=== PATIENT | female | born 1930 | race Caucasian/White ===

== ENCOUNTER 2018-07-26 06:52 | Inpatient (IN) ==
--- NOTE | 2018-07-26 07:25 | PROVIDER DOCUMENTATION ---
HPI-General Adult - General Stated Complaint: fall Time Seen by Provider: 07/26/18 07:11 Source: patient, old records Allergies/Adverse Reactions: Patient Allergies Allergy/AdvReac Type Severity Reaction Status Date / Time No Known Allergies Allergy Verified 07/26/18 07:43 Home Medications: Home Medication List Medication Instructions Recorded Confirmed Last Taken Type Amiodarone [Cordarone] 200 mg PO BID 03/18/18 03/18/18 03/26/18 02:30 History Amlodipine [Norvasc] 10 mg PO DAILY 03/18/18 03/18/18 03/26/18 02:30 History Aspirin 81 mg PO DAILY 03/18/18 03/18/18 03/22/18 History Calcium Carbonate/Vitamin D3 1 each PO DAILY 03/18/18 03/18/18 03/25/18 09:00 History [Calcium 600 + Vit D Tablet] Cyanocobalamin (Vitamin B-12) 1,000 mcg PO DAILY 03/18/18 03/18/18 03/25/18 09:00 History [Vitamin B-12] Famotidine 20 mg PO DAILY 03/18/18 03/18/18 03/26/18 02:30 History Ferrous Gluconate [Fergon] 240 mg PO DAILY 03/18/18 03/18/18 03/26/18 02:30 History Metoprolol [Lopressor] 25 mg PO DAILY 03/18/18 03/18/18 03/26/18 02:30 History Naproxen Sodium [Aleve] 220 mg PO BID 03/18/18 03/26/18 03/25/18 09:00 History Rivaroxaban [Xarelto] 15 mg PO DAILY 03/18/18 03/26/18 03/22/18 History Vit C/E/Zn/Coppr/Lutein/Zeaxan 1 each PO DAILY 03/18/18 03/18/18 03/25/18 09:00 History [Preservision Areds 2 Softgel] Hydrocodone/APAP 5 mg/325 mg 1 ea PO Q6H PRN PRN #10 tab 03/26/18 Unknown Rx [[place]-5] - History of Present Illness -Gen Adult Nature of Presenting Problems: wheelchair bound pt (reports fx hip and back surgery in 2018, non-amb. since) w/ hx of revasc LLE per Dr. Berumen Jared of this year (ulcer), reports she had a stool in her WChair and was attempting to clean it/herself up when she fell ooWC. does not cc: specific/focal pain/injury from this fall. she says she had a ~ large, soft but formed stool. she had a CXR ~ 3 days ago described w/o c'megaly, but bibasilar atelectasis and pl effusions. her face appears swollen as if anasarca, and she says face, hands, and legs/feet have sTS over past 3 weeks. she does not volunteer a specific cc: of SOB. Review of Systems - Adult - REVIEW OF SYSTEMS - ADULT Constitutional: reports: no symptoms reported Eyes: reports: no symptoms reported Ears, Nose, Mouth & Throat: reports: no symptoms reported Cardiovascular: reports: no symptoms reported Respiratory: reports: no symptoms reported Gastrointestinal: reports: see HPI Genitourinary: reports: no symptoms reported Musculoskeletal: reports: see HPI Integumentary: reports: see HPI Neurological: reports: no symptoms reported Psychiatric: reports: no symptoms reported Endocrine: reports: no symptoms reported Hematologic/Lymphatic: reports: no symptoms reported Allergic/Immunologic: reports: no symptoms reported All Other Systems: Reviewed and Negative Past History - Adult - PAST MEDICAL HISTORY-ADULT Review of Records: reports: Old Records Reviewed Physical Exam-General - PHYSICAL EXAM-ADULT Initial Vital Signs Reviewed: Yes - CONSTITUTIONAL General Appearance: alert, mild distress, other (tachypneic) - EYES Eyes: other (non-inflammatory periorb and facial edema bilat) - HEAD, EARS, NOSE, MOUTH & THROAT HENMT: normocephalic/atraumatic, dental decay - NECK Neck: non-tender, supple - RESPIRATORY Respiratory: decreased breath sounds - CARDIOVASCULAR Cardiovascular: regular rate, rhythm. negative: no JVD (pt has NVD @ 30deg HOB elev, but fill from above) - GASTROINTESTINAL (ABDOMEN) Abdominal Exam: normal bowel sounds, no pulsatile mass, distended. negative: abnormal bowel sounds, guarding, rigid, rebound, tenderness - MUSCULOSKELETAL Back Exam: decreased range of motion Extremity: pedal edema (bilat 3-4+ edema, kendell insuff, slight cellulitic erythema L ant leg, but not warm to touch. no open wounds. debris on plantar feet esther R), swelling - SKIN Integumentary: swelling. negative: ecchymosis, embolic lesions, jaundice, mottled, petechiae, purpura, rash - NEUROLOGIC Neurologic: mixer runner II-XII nml as tested, grossly normal - PSYCHIATRIC Psych/Mental Status: normal mood/affect, normal thought content Progress - PLAN OF CARE/RESULTS Result Diagrams: 07/26/18 07:52 07/26/18 07:52 - REASSESSMENT Reassessment #2 Time Reassessed: 10:45 Status: improving (pt found to be profoundly hypothermic on rectal therm. pt was empirically placed on warming blanket and given IV thyroxine and hcortisone. labs appear to confirm hypothyroidism, also suggx rhabdomyolysis. brain imaging NAD. CXR reviewed. will page Hospitalist for adm.) Departure - Departure Date of Disposition Decision: 07/26/18 Time of Disposition Decision: 10:50 DIAGNOSIS: Adult myxedema, Hypothermia, Rhabdomyolysis Disposition: ADMITTED INPATIENT 09 Certified Medical Emergency: Emergent Condition: Critical Referrals and Follow-Ups: Rhys Reyes MD [Primary Care Provider] - - Critical Care Note This patient required my direct & personal management of CC.: Yes Total Time (mins): 50 Critical Care Statement: This patient required my direct personal management to treat or rule out processes, the absence of which, could potentiallly result in sudden, clinically significant life or limb threatening deterioration. Attestation - Physician/ ANGELITO Attestation The physician spent face to face time with patient:: Yes Advanced Practice Provider documentation review:: Supervising physician onsite and consulted in the evaluation and care of this patient. The physician did have a face to face encounter with the patient.
[2018-07-26 08:06] LABS: BASO# 0.01 X1000 (0.0-0.2); BASO% 0.1 % (0.0-0.8); EOS# 0.02 X1000 (0.0-0.7); EOS% 0.2 % (0.0-10.0); HEMATOCRIT 31.1 % (37.0-47.0); HEMOGLOBIN 10.6 g/dL (12.0-16.0); IMM GRAN# 0.08 X1000 (0.0-0.04); IMM GRAN% 0.8 % (0.0-0.5); LYMPH# 0.69 X1000 (1.2-3.4); MCH 34.6 PG (27-31); MCHC 34.1 g/dL (33-37); MCV 101.6 FL (81-99); MONO# 0.75 X1000 (0.11-0.59); MONO% 7.6 % (1.7-9.3); MPV 9.1 FL (7.4-10.4); NEUT# 8.33 X1000 (1.4-6.5); NEUT% 84.3 % (42.2-75.2); PLT 287 X1000 (130-400); RBC 3.06 XMIL (4.2-5.4); WBC 9.88 X1000 (4.8-10.8)
[2018-07-26] MEDS ORDERED: SYNTHROID IV ONE ×3 (08:08→11:11)
[2018-07-26] MEDS ORDERED: SODIUM CHLORIDE 0.9% INJ ONE ×3 (08:08→11:11)
[2018-07-26] MEDS ORDERED: SOLU-CORTEF IV ONE (08:09)
[2018-07-26 08:10] LABS: URINE SOURCE CATH
[2018-07-26 08:15] LABS: BILIRUBIN URINE NEGATIVE (NEGATIVE); BLOOD URINE NEGATIVE (NEGATIVE); COLOR YELLOW; GLUCOSE URINE NEGATIVE (NEGATIVE); KETONE URINE NEGATIVE (NEGATIVE); LEUKOCYTES URINE NEGATIVE (NEGATIVE); NITRITE URINE NEGATIVE (NEGATIVE); PROTEIN URINE TRACE mg/dL (NEGATIVE); SP GRAVITY URINE 1.011; TURBIDITY URINE CLEAR (CLEAR); UR EPITHELIAL CELLS <10 /HPF (<10); URINE BACTERIA NEGATIVE /HPF; URINE RBC <10 /HPF (<10); URINE WBC <10 /HPF (<10); UROBILINOGEN URINE NORMAL (NORMAL)
[2018-07-26 08:27] LABS: CALCIUM 8.4 mg/dL (8.8-10.2); CREATININE 1.1 mg/dL (0.5-0.9); MAGNESIUM 2.6 mg/dL (1.5-2.7); POTASSIUM 5.4 mmol/L (3.5-5.1); TOTAL BILIRUBIN 0.35 mg/dL (0.20-1.00)
[2018-07-26 08:40] LABS: PTT 34.1 Seconds (22.3-41.8)
[2018-07-26 08:52] LABS: CK INDEX 4.1 (0.0-2.5); CK-MB 56.37 ng/mL (0.0-5.0); T4 1.76 ug/dL (4.60-12.00)
[2018-07-26 09:07] LABS: TSH 79.86 uIUmL (0.27-4.20)
--- NOTE | 2018-07-26 09:30 | Diag Imaging Result Doc PS360 ---
CT HEAD W/O CONTRAST - 07/26/2018 INDICATION: closed head injury (fall) on Xarelto COMPARISON: None FINDINGS: There is a small focal area of encephalomalacia at the left parietal lobe most likely an old stroke. No intracranial mass or hemorrhage. There is mild periventricular white matter chronic microvascular disease. There is a small left frontal scalp contusion. There is also soft tissue swelling over the left temporal region. No large soft tissue hematoma. There is some trace fluid in the sphenoid sinuses. Other sinuses are clear. IMPRESSION: Left-sided scalp superficial soft tissue contusions. No intracranial injury. This exam was performed using automated exposure control, adjustment of mA or kV according to patient size, and/or use of iterative reconstruction technique Electronically signed by Alberto Kaufman 07/26/2018 9:28 AM
--- NOTE | 2018-07-26 09:36 | Diag Imaging Result Doc PS360 ---
CT ABD/PELVIS W/IV CONT ONLY - 07/26/2018 INDICATION: abd distension, anasarca COMPARISON: 03/05/2018 FINDINGS: There are small bilateral pleural effusions. There is significant dependent atelectasis or consolidation of both lower lobes. There is diffuse body wall edema worst on the left side. There is heavy vascular disease of the aorta. Heart size is normal with no pericardial effusion. There are pacemaker leads in the heart. There is a moderately large hiatal hernia. There is severe constipation throughout the colon. No bowel obstruction or inflammation. There is a septated cystic area at the right adnexa measuring 5.4 x 4.2 cm. This is stable from the CT of 03/05/2018. There is recent appearing comminuted fracture of the right symphysis pubis was not present previously. There are clearly sclerotic densities throughout both sacral wings compatible with sacral insufficiency fractures as well. Stable laminectomy and left-sided posterior fusion changes at the lower lumbar spine. No definite compression fractures in the spine. IMPRESSION: Numerous nonspecific issues. This exam was performed using automated exposure control, adjustment of mA or kV according to patient size, and/or use of iterative reconstruction technique Electronically signed by Alberto Kaufman 07/26/2018 9:34 AM
[2018-07-26] MEDS ORDERED: CYTOMEL PO ONE (11:12)
[2018-07-26] MEDS ORDERED: SODIUM CHLORIDE 0.9% INJ PRN (11:12)
[2018-07-26 12:45] LABS: UR CREAT RANDOM 48.5 mg/dL (11-20)
[2018-07-26] MEDS: ROCEPHIN 1 GM in NS 50 ML IV SCH (13:21)
[2018-07-26 13:44] LABS: CK INDEX 3.8 (0.0-2.5); CK-MB 55.73 ng/mL (0.0-5.0); FERRITIN 446 ng/mL (13-150)
[2018-07-26] MEDS ORDERED: NS 1,000 ML IV ONE (14:47)
[2018-07-26] MEDS: SOLU-CORTEF IV SCH (16:10)
[2018-07-26] MEDS: NS 1,000 ML IV SCH (16:10)
[2018-07-26] MEDS: ZITHROMAX 500 MG/NS 500 MG/250 ML IVPB IV SCH (16:10)
[2018-07-26 20:05] LABS: CK INDEX 3.3 (0.0-2.5); CK-MB 35.65 ng/mL (0.0-5.0)
[2018-07-26] MEDS: CORDARONE PO SCH (20:42)
[2018-07-26] MEDS: MIRALAX PO SCH (20:42)
--- NOTE | 2018-07-26 21:20 | HISTORY AND PHYSICAL ---
CHIEF COMPLAINT: Lethargy, generalized body swelling and mechanical fall. HISTORY OF PRESENT ILLNESS: Ms. Becker is an 88-year-old lady with past medical history of atrial fibrillation and rapid ventricular rate status post pacemaker on Xarelto, chronic GERD, mouth cancer requiring surgery in 2011 and 2013, essential hypertension, who came in after she was noticed by her lying down on the floor fallen from her motorized wheelchair, which could have happened for up to 6 hours before presentation. At baseline patient ambulates using a motorized wheelchair and she has been in her usual state of health until about a week ago when she started feeling short of breath. She had seen her it technical support specialist 2 days prior to presentation and chest x-ray and echocardiogram were performed. Chest x-ray had suggested bilateral pleural effusions. An echocardiogram had normal ejection fraction with some pericardial effusion. Some adjustments were made into her cardiovascular regimen; however, patient had started becoming increasingly lethargic overnight. The patient wanted to go to the bathroom using a motorized wheelchair and she had fallen down. She was not sure how many hours she was fallen down; however, her noticed she was on the floor in the morning time at about 6:30 a.m. and called EMS. EMS brought the patient to the emergency room. In the emergency room, the patient was noted to be severely hypothermic with temperature as low as 91 degree Fahrenheit. Her TSH was significantly elevated. Intravenous levothyroxine and hydrocortisone were given and hospitalist team was consulted for further management. At the time of my evaluation, patient is drowsy but arousable and she is able to contribute to the history meaningfully. She denies any known history of thyroid disease. She currently denies any chest pain. She is complaining of mild shortness of breath. She denies any nausea, vomiting, abdominal pain or diarrhea. The patient's family including and daughter are at bedside. I am told that the patient had recently developed left lower extremity cellulitis for which she was given antibiotics about 2 weeks ago, the details of which are unclear. REVIEW OF SYSTEMS: Negative for blurriness of vision, negative for seizure, positive for mild headache, negative for chest pain, negative for nausea, vomiting, negative for abdominal pain, positive for shortness of breath, positive for bilateral lower extremity swelling. PAST MEDICAL AND SURGICAL HISTORY: 1. Atrial fibrillation with rapid ventricular rate, status post pacemaker. 2. On chronic anticoagulation with Xarelto. 3. 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 4. Chronic GERD. 5. Pacemaker implantation. 6. Hip surgery in 2018. 7. Peripheral arterial disease and left lower extremity percutaneous left posterior tibial artery balloon angioplasty in February 2018. HOME MEDICATIONS: The medications are not properly reconciled yet. However, she is taking vitamin E 1 tablet daily, metoprolol 25 mg daily, ferrous gluconate 240 mg daily, amlodipine 10 mg daily, amiodarone 200 mg b.i.d., rivaroxaban 15 mg daily, furosemide 40 mg daily, potassium chloride 10 mEq daily, spironolactone 12.5 mg daily. PERSONAL HISTORY: Patient is never smoker. Denies active alcohol drinker, recreational drug. FAMILY HISTORY: Not significant currently. VITAL SIGNS: Currently vitals suggest temperature of 97.3, pulse of 60, respiratory rate 13, blood pressure 100/50, saturating 98% on 4 L nasal cannula. PHYSICAL EXAMINATION: GENERAL: She does have generalized anasarca with puffy face, puffy bilateral upper and lower extremity. HEENT: She also has periorbital edema. Oral cavity is moist. LUNGS: Air entry decreased bilateral inframammary region. No wheeze or rhonchi. S1, S2 normal, bradycardic. No murmur, rub or gallop. The thyroid is not palpable. ABDOMEN: Soft, nontender. She has bilateral lower extremity edema extending up to thigh level. She also has pitting edema and generalized erythema affecting left lower extremity. Her pulses are difficult to palpate. SKIN: Appears warm to touch. Reflexes are brisk both upper and lower extremities. NEUROLOGIC: She is drowsy but arousable and then contributes meaningful history. Her voice appears hoarse. LABORATORY: Suggestive of no leukocytosis, normocytic anemia, normal platelet count, normal coagulation, hyponatremia, hyperkalemia, hypochloremia, elevated BUN and creatinine with kidney dysfunction. Troponins so far showing a flat trend. She does have elevated vitamin B12 level. TSH was elevated to 80, total T4 is low to 1.7, though free T4 was within acceptable range. It looks like was collected after intravenous levothyroxine. Microbiology: Blood cultures are in lab. IMAGING: Abdomen and pelvis CT performed for abdominal distention, anasarca. Had bilateral pleural effusion. There is dependent atelectasis or consolidation. There was diffuse body wall edema, vascular calcification of aorta, moderate large hiatal hernia, severe constipation. There were also comminuted fracture of right symphysis pubis and densities throughout both sacral wings compatible with sacral insufficiency fractures. EKG has not been scanned in the system. ASSESSMENT AND PLAN: 1. Suspected sepsis from bilateral lower lobe pneumonia and possibly left lower extremity cellulitis. 2. Myxedema. 3. Suspected acute kidney injury with hyponatremia, hyperkalemia. 4. Lethargy and mechanical fall with likely in the setting of severe hypothyroidism and myxedema. 5. History of atrial fibrillation with rapid ventricular rate, status post pacemaker and Xarelto. 6. Chronic GERD. 7. Peripheral arterial disease with left lower extremity posterior tibial artery angioplasty. PLAN: 1. Start patient on intravenous fluid resuscitation, intravenous levothyroxine and p.o. T3 hormone. Also, keep patient on intravenous hydrocortisone to prevent secondary adrenal insufficiency, though her electrolytes could suggest adrenal insufficiency. Her cortisol level is normal at the moment. Continue to monitor the patient in ICU. 2. Start patient on intravenous ceftriaxone. Follow up with urine Legionella and streptococcal antigen with blood culture results as well. 3. I will resume patient's home amiodarone for atrial fibrillation; ferrous gluconate for chronic anemia. I am holding beta herminia considering it may prevent T4-T3 conversion. I am holding Xarelto considering her recent fall. TIME SPENT: More than 30 minutes of critical care time was spent in taking care of this patient. CODE STATUS: The patient's code status is do not resuscitate. PLAN OF CARE: Plan of care discussed with the patient, her and daughter at bedside. All of their questions have been answered. cc: Dharmesh Jane MD [facility]
[2018-07-27] MEDS: SOLU-CORTEF IV SCH ×4 (00:23→23:53)
[2018-07-27] MEDS: ROCEPHIN 1 GM in NS 50 ML IV SCH ×3 (00:27→23:53)
--- NOTE | 2018-07-27 05:00 | HISTORY AND PHYSICAL ---
CHIEF COMPLAINT: Lethargy and mechanical fall. HISTORY OF PRESENT ILLNESS: Ms. Becker is an 88-year-old, lady with a past medical history of atrial fibrillation with rapid ventricular rate, status post pacemaker and on Xarelto, hip surgery in 2018, who comes in after a mechanical fall. The patient was in her usual state of health until yesterday. She is bedbound and uses a motorized wheelchair. Apparently, the patient went to have a bowel movement overnight. She was in her motorized chair but she did not notify her and she fell down while going to the bathroom. The , when he woke up in the morning time, found the patient was on the floor. However, she was not able to talk with her so the actual down time was not known. The EMS was called and EMS brought the patient in the emergency room. In the emergency room, the patient was found to have a scalp hematoma as well as bilateral lower extremity edema and bilateral upper extremity edema and facial swelling. The TSH level was very elevated. She was given intravenous levothyroxine and hydrocortisone. The hospitalist team was notified of further management. Apparently, the patient had seen a merchandising professor for increasing shortness of breath about 2 or 3 days ago and an x-ray was performed which had bilateral pleural effusion. According to the patient's at bedside, some medication changes were made. She was also diagnosed to have left lower extremity cellulitis and was started on some antibiotic about couple of weeks ago, the details of which are unclear. At the time of my evaluation, the patient is sleepy but easily arousable and she is able to provide a meaningful history. She denies being diagnosed with thyroid disorder in the past. She denies any nausea, vomiting, chest pain, or shortness of breath. She denies any abdominal pain or diarrhea. REVIEW OF SYSTEMS: Positive for headache. Negative for blurring of vision. Negative for swallowing disturbance. Positive for hoarseness of voice. Negative for chest pain or shortness of breath. Negative for nausea, vomiting, or abdominal pain. PAST MEDICAL HISTORY: 1. 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 2. Essential hypertension. 3. Atrial fibrillation with rapid ventricular rate, status post pacemaker and on Xarelto. 4. Mouth cancer in 2011 and 2012 requiring surgery, probably involving her gums. 5. Chronic gastroesophageal reflux disease. PAST SURGICAL HISTORY: 1. Pacemaker placement. 2. Hip surgery in 2018. 3. Peripheral arterial disease and percutaneous left posterior tibial artery balloon angioplasty for left posterior tibial artery occlusion with the heel ulcer and severe left popliteal stenosis in February. HOME MEDICATIONS: Include metoprolol 25 mg daily, ferrous gluconate 240 mg daily, amlodipine 10 mg daily, amiodarone 200 mg b.i.d., Xarelto 15 mg daily, furosemide 40 mg daily, potassium chloride 10 mEq daily, spironolactone 12.5 mg daily. PERSONAL HISTORY: Never smoker. Never a drinker. Never a recreational drug user. VITALS: Temperature of 97.3 degrees, pulse of 61, respiratory rate 22, blood pressure 110/70, saturating 99% on 2 L nasal cannula. PHYSICAL EXAMINATION: GENERAL: Does not appear in any acute distress. She is sleepy. HEENT: She has greene facies with periorbital edema. She has hoarseness of voice. Oral cavity is moist. LUNGS: Air entry bilaterally equal. No wheeze, rhonchi, crackles. CARDIOVASCULAR: S1, S2 normal. No murmur, rub, or gallop. ABDOMEN: Soft, nontender. Tympanic to percussion. EXTREMITIES: She has bilateral lower extremity edema and diffuse erythema affecting the left lower extremity but good dorsalis pedis pulses and good perfusion. NEUROLOGIC: She is drowsy but arousable. Answers all questions appropriately and remembers all of her medical history. LABS: Suggestive of macrocytic anemia, normal platelet count, normal coagulation, hyponatremia, hypochloremia, hyperkalemia, what appears to be chronic kidney disease stage IIIA, elevated troponins, elevated proBNP. TSH level is 80 Total T4 is 1.7. However, Free T4 level is pending. MICROBIOLOGY: Blood culture in lab. IMAGING: Head CT did not have an acute intracranial pathology. She did have left-sided scalp superficial soft tissue contusion. Abdomen and pelvis CT for abdominal distention and anasarca had bilateral pleural effusions with atelectasis or consolidation, diffuse body wall edema, vascular disease of aorta, severe constipation, recent comminuted fracture of the right symphysis pubis. ASSESSMENT AND PLAN: 1. Suspected sepsis due to bilateral lower lobe pneumonia. 2. 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 3. Mechanical fall because of physical deconditioning and myxedema coma. 4. Hyponatremia, hypochloremia, hyperkalemia in the setting of chronic kidney disease stage 3. 5. History of atrial fibrillation with rapid ventricular rate, status post pacemaker. 6. History of peripheral arterial disease. 7. Essential hypertension. PLAN: 1. The patient's significant hypothermia, hyponatremia, hyperkalemia, and elevated TSH are likely in the setting of myxedema with generalized body wall edema and anasarca, likely in the setting of myxedema coma because of undiagnosed hypothyroidism. She does not have adrenal insufficiency at the moment. I will start the patient on intravenous levothyroxine, p.o. T3 and intravenous hydrocortisone. In the future, I will repeat TSH. I will follow up with free T4 and T3 levels as well. I will also get anti-TPO antibodies and we will consider getting a thyroid ultrasound. 2. Suspected sepsis. The source could be bilateral lower lobe pneumonia versus left lower extremity cellulitis. The possibility of cellulitis is less. I will follow up with urine antigen, blood culture, and treat patient with intravenous ceftriaxone and azithromycin. 3. Multiple electrolyte abnormalities and kidney dysfunction, likely in the setting of chronic kidney disease stage 3. I will start patient on intravenous fluid resuscitation and follow up with serial electrolytes. 4. Atrial fibrillation with rapid ventricular rate history as well as peripheral artery disease. I will resume the patient's home medications of amiodarone. Later on in the future, I will start her antihypertensive medication including metoprolol, amlodipine, and Xarelto once her scalp hematoma is stable. DISPOSITION: The patient's condition is critical. More than 30 minutes of critical care time were spent in taking care of this patient. Plan of care discussed with patient's and daughter at bedside. All of their questions have been satisfactorily answered. The patient's code status is Do Not Resuscitate as verbalized by patient herself. cc: Dharmesh Jane MD [facility]
[2018-07-27 05:38] LABS: HEMATOCRIT 26.6 % (37.0-47.0); HEMOGLOBIN 8.9 g/dL (12.0-16.0); IMM GRAN# 0.06 X1000 (0.0-0.04); IMM GRAN% 0.8 % (0.0-0.5); LYMPH# 0.56 X1000 (1.2-3.4); LYMPH% 7.5 % (20.5-51.1); MCH 34.6 PG (27-31); MCHC 33.5 g/dL (33-37); MCV 103.5 FL (81-99); MONO# 0.28 X1000 (0.11-0.59); MONO% 3.8 % (1.7-9.3); MPV 8.9 FL (7.4-10.4); NEUT# 6.54 X1000 (1.4-6.5); NEUT% 87.9 % (42.2-75.2); PLT 275 X1000 (130-400); RBC 2.57 XMIL (4.2-5.4); RDW 15.7 % (11.5-14.5); WBC 7.44 X1000 (4.8-10.8)
[2018-07-27 06:05] LABS: CALCIUM 8.1 mg/dL (8.8-10.2); MAGNESIUM 2.5 mg/dL (1.5-2.7); POTASSIUM 4.6 mmol/L (3.5-5.1)
[2018-07-27] MEDS: SYNTHROID IV SCH (06:23)
[2018-07-27] MEDS: NS 1,000 ML IV SCH (06:23)
--- NOTE | 2018-07-27 06:34 | Diag Imaging Result Doc PS360 ---
CHEST-1 VIEW - 07/27/2018 INDICATION: possible pneumonia COMPARISON: 07/23/2018 FINDINGS: Stable left sided pacemaker. Stable cardiomegaly. Stable bibasilar pleural effusions that are moderately large. Pulmonary vascularity remains distended. No infiltrates or definite edema. IMPRESSION: No change from prior. Electronically signed by Alberto Kaufman 07/27/2018 6:31 AM
[2018-07-27] MEDS ORDERED: SYNTHROID IV SCH (07:00)
--- NOTE | 2018-07-27 07:21 | EKG Report ---
Test Performed on : 07/26/2018 07:42:15 AM Test Reason : dyspnea Blood Pressure : / mmHG Vent. Rate : 060 BPM Atrial Rate : 060 BPM P-R Int : 000 ms QRS Dur : 148 ms QT Int : 530 ms P-R-T Axes : 000 054 197 degrees QTc Int : 530 ms Sinus rhythm. with AV dissociation. and Wide QRS rhythm. Left bundle branch block Abnormal ECG When compared with ECG of 18-MAR-2018 14:17, Wide QRS rhythm. has replaced Electronic atrial pacemaker Unconfirmed Result
[2018-07-27] MEDS ORDERED: XARELTO PO SCH (09:00)
[2018-07-27] MEDS: MIRALAX PO SCH ×2 (09:05→20:11)
[2018-07-27] MEDS: OCUVITE LUTEIN & ZEAXANTHIN PO SCH (09:05)
[2018-07-27] MEDS: CORDARONE PO SCH ×2 (09:05→20:10)
[2018-07-27] MEDS: CYTOMEL PO SCH ×4 (09:05→16:31)
[2018-07-27] MEDS: FERGON PO SCH (09:05)
[2018-07-27] MEDS ORDERED: LOPRESSOR PO SCH (10:45)
--- NOTE | 2018-07-27 11:12 | PROGRESS NOTE ---
DATE: 07/27/2018 INTERVAL HISTORY: Her vitals are unremarkable. She had a bowel movement. She continues to have microcytic anemia for which iron panels have been ordered. She has improvement in sodium chloride, potassium and her acute kidney injuries. Her troponins were showing flat trend. Her IV fluids now have been stopped and her diet has been advanced. SUBJECTIVE: Patient says she does not remember when exactly she fell down, but she wanted to go to the bathroom and then she slipped and fell down. She denies known history of thyroid surgery or hypothyroidism. We discussed about physical exam, labs, and plan. I answered all of her questions. OBJECTIVE: Vitals: Temperature 97.4 degrees, pulse 61, respiratory rate 14, blood pressure 122/54. She is saturating 96% on 4 L nasal cannula. General: She has generalized anasarca with puffy face, puffy bilateral upper and lower extremities. HEENT: She has periorbital edema. Oral cavity is moist. No pallor, cyanosis, clubbing, or icterus. Lungs: Decreased air entry bilateral inframammary region with inspiratory crackles. No wheeze or rhonchi. Cardiac: S1, S2 normal. No murmur, rub, or gallop. The thyroid is not palpable. Abdomen: Soft, nontender. She has abdominal wall edema as well. Hypoactive bowel sounds. Extremities: She has bilateral lower extremity edema extending up to thigh level. Dorsalis pedis are palpable both feet. Neurologic: She is arousable, alert and oriented. LABORATORIES: Today suggestive of no leukocytosis. She does have macrocytic anemia. Normal platelet count. Improving hyponatremia and hypochloremia. Her potassium is 4.6. Her acute kidney injury has also improved, and she could have a component of chronic kidney disease stage 3. MICROBIOLOGY: Blood cultures are in lab. IMAGING: Chest x-ray suggests bilateral pleural effusions. ASSESSMENT AND PLAN: 1. Suspected sepsis and acute hypoxic respiratory failure from bilateral lower lobe pneumonia and possibly left lower extremity cellulitis. Follow up blood culture, Streptococcus and Legionella antigen. Continue intravenous ceftriaxone and azithromycin. Continue to monitor in ICU. 2. Myxedema. Continue intravenous levothyroxine, p.o. Cytomel and intravenous hydrocortisone. My plan is to slowly taper hydrocortisone tomorrow onwards. I will also try and send thyroid peroxidase antibodies tomorrow. Continue MiraLAX for constipation. 3. Acute kidney injury with hyponatremia, hypochloremia and hyperkalemia, now improving. I will stop intravenous fluids and encourage her to take p.o. This could be in the setting of use of Lasix. 4. History of atrial fibrillation with rapid ventricular rate, status post pacemaker and Xarelto. Currently, she is not hypotensive, so my plan is to resume her metoprolol and I will resume her Xarelto tomorrow onwards. She just had a mechanical fall. I will also continue her home amiodarone. 5. Others. Continue ferrous gluconate for chronic anemia and follow up with iron panel with vitamin B12 tomorrow. 6. Disposition. Patient condition still remains critical. TIME SPENT: More than 30 minutes of critical care time was spent in taking care of this patient. Plan of care discussed with the patient and all of her questions have been answered. cc: Dharmesh Jane MD MTDD
--- NOTE | 2018-07-27 11:16 | EKG Report ---
Test Performed on : 07/27/2018 10:35:59 AM Test Reason : Evalaute heart rhythm Blood Pressure : / mmHG Vent. Rate : 069 BPM Atrial Rate : 069 BPM P-R Int : 200 ms QRS Dur : 152 ms QT Int : 464 ms P-R-T Axes : 082 072 004 degrees QTc Int : 497 ms Normal sinus rhythm. Left bundle branch block Abnormal ECG When compared with ECG of 26-JUL-2018 07:42, (Unconfirmed) Sinus rhythm. has replaced Wide QRS rhythm. Confirmed by Adolfo SERVIN, Anton De León ([id number]) on 07/29/2018 9:41:39 AM
[2018-07-27] MEDS ORDERED: BLISTEX MEDICATED BERRY LIP BALM TOP PRN (13:11)
[2018-07-27] MEDS: ZITHROMAX 500 MG/NS 500 MG/250 ML IVPB IV SCH (15:47)
[2018-07-28 04:34] LABS: BASO# 0.01 X1000 (0.0-0.2); BASO% 0.1 % (0.0-0.8); HEMATOCRIT 28.2 % (37.0-47.0); HEMOGLOBIN 9.4 g/dL (12.0-16.0); IMM GRAN# 0.11 X1000 (0.0-0.04); LYMPH# 0.53 X1000 (1.2-3.4); LYMPH% 4.8 % (20.5-51.1); MCH 34.9 PG (27-31); MCHC 33.3 g/dL (33-37); MCV 104.8 FL (81-99); MONO# 0.47 X1000 (0.11-0.59); MONO% 4.3 % (1.7-9.3); NEUT# 9.87 X1000 (1.4-6.5); NEUT% 89.8 % (42.2-75.2); PLT 317 X1000 (130-400); RBC 2.69 XMIL (4.2-5.4); RDW 16.2 % (11.5-14.5); WBC 10.99 X1000 (4.8-10.8)
[2018-07-28 04:50] LABS: MAGNESIUM 2.6 mg/dL (1.5-2.7); POTASSIUM 4.3 mmol/L (3.5-5.1)
[2018-07-28 04:51] LABS: IRON SATURATION 27 %; TIBC 241 ug/dL; TOTAL IRON 64 ug/dL (49-151); UNBOUND IRON 177 ug/dL (112-346)
[2018-07-28 04:57] LABS: LYMPHS 4 % (21-51); MONO 2 % (1-9); SEGS 94 % (42-75)
[2018-07-28 05:08] LABS: FERRITIN 282 ng/mL (13-150)
[2018-07-28] MEDS: SYNTHROID IV SCH (06:16)
--- NOTE | 2018-07-28 08:35 | PROGRESS NOTE ---
DATE: 07/28/2018 INTERVAL HISTORY: No acute events. The patient's pulse and blood pressure has been stable. Her heart rate has been in 60s. Her blood culture did not have any growth to date. The patient has been needing oxygen to maintain adequate saturation. SUBJECTIVE: Patient states she is feeling better. She is no longer coughing as she used to before. She tells me that her voice has started becoming weak recently. She also tells me that she does not have any chest pain. VITAL SIGNS: Currently, vitals suggest temperature of 99 degrees, pulse 66, respiratory 15, blood pressure 126/56 and saturating 91% on 3 L nasal cannula. She is no longer hypothermic. PHYSICAL EXAMINATION: She does not appear in any acute distress. There is generalized anasarca. She has puffy face, loss of lateral eye lids, bilateral upper and lower extremity edema. Her oral cavity is moist. No pallor, cyanosis, clubbing, or icterus.Lungs: She has decreased air entry bilateral inframammary region with inspiratory crackles. No wheeze or rhonchi. Heart: S1-S2 was normal. Appears heart rate in 60s. No murmur, rub, or gallop. Abdomen: Soft, nontender. She has abdominal wall edema. Hypoactive bowel sounds. She had a bowel movement yesterday. Extremities: She has bilateral lower extremity edema extending up to thigh level. Dorsalis pedis are palpable in both pulses. There is mild erythema affecting left lower extremity where she had surgery before. Neurologic: She is alert and oriented x3. LABORATORY: Suggestive of mild leukocytosis and macrocytic anemia. Normal platelet count. Her eosinophil count is 0. She continues to have hyponatremia and hypochloremia. Hyperkalemia is resolved. She appears to have baseline chronic kidney disease stage 3. Iron studies suggest anemia of chronic disease with low folate. Microbiology: No positive data to date. No new imaging data available. ASSESSMENT AND PLAN: 1. Suspected sepsis and acute hypoxic respiratory failure from bilateral lower lobe pneumonia, and possibly left lower extremity cellulitis. Blood culture no growth to date. Followup final streptococcal and Legionella antigen. Continue intravenous ceftriaxone and azithromycin, and oxygenation. I will start her on intravenous Lasix considering her worsening hypoxia. 2. Myxedema. Continue intravenous levothyroxine and p.o. Cytomel. I will decrease the intravenous hydrocortisone frequency and would taper it off over the next 2 to 3 days. Continue MiraLAX for constipation. Follow up ultrasound thyroid results. 3. Acute kidney injury with hyponatremia, hypochloremia and hyperkalemia now improving. She appears to have baseline chronic kidney disease stage 3. Her hyponatremia could be because of myxedema. 4. History of atrial fibrillation with rapid ventricular rate, status post pacemaker, and on home Xarelto. She is currently not hypotensive. I will resume her metoprolol in the future once her hypothyroidism is under better control since beta herminia can impair T4 to T3 conversion. Continue her home amiodarone for now and add Xarelto. 5. Others: Continue ferrous gluconate with folic acid for anemia of chronic disease as well as folic acid deficiency. Advised that her vitamin B12 level is normal. 6. Disposition. The patient's condition has improved. My plan is to transfer her to a routine medical floor today. Plan of care discussed with the patient, and all of her questions have been answered. I called patient's daughter and discussed with her patient's clinical course and answered all of her questions. cc: Dharmesh Jane MD MTDD
[2018-07-28] MEDS: LASIX IV SCH ×2 (08:58→15:47)
[2018-07-28] MEDS: OCUVITE LUTEIN & ZEAXANTHIN PO SCH (09:26)
[2018-07-28] MEDS: FERGON PO SCH (09:27)
[2018-07-28] MEDS: FOLIC ACID PO SCH (09:27)
[2018-07-28] MEDS: MIRALAX PO SCH ×2 (09:27→21:06)
[2018-07-28] MEDS: CORDARONE PO SCH ×2 (09:27→21:05)
[2018-07-28] MEDS: CYTOMEL PO SCH ×3 (09:27→16:55)
[2018-07-28] MEDS: SOLU-CORTEF IV SCH ×2 (09:31→21:06)
[2018-07-28] MEDS ORDERED: PEPCID IV SCH (10:30)
[2018-07-28] MEDS ORDERED: SODIUM CHLORIDE 0.9% INJ SCH (10:30)
[2018-07-28] MEDS ORDERED: MORPHINE IV PRN (10:32)
[2018-07-28] MEDS ORDERED: PHENERGAN IV PRN (10:45)
[2018-07-28] MEDS ORDERED: SODIUM CHLORIDE 0.9% INJ PRN (10:45)
[2018-07-28] MEDS ORDERED: LR 1,000 ML IV SCH (11:00)
[2018-07-28] MEDS ORDERED: OFIRMEV 1000 MG/ISOTONIC SOLN 1,000 MG/100 ML BOTTLE IV SCH (12:00)
[2018-07-28] MEDS: ROCEPHIN 1 GM in NS 50 ML IV SCH ×2 (13:21→23:53)
[2018-07-28] MEDS: SANTYL OINT TOP SCH (13:21)
--- NOTE | 2018-07-28 14:28 | Diag Imaging Result Doc PS360 ---
EXAM: US SOFT TISSUE HEAD/NECK HISTORY: Evaluate for thyroid enlargement/ structural abnor TECHNIQUE: Thyroid ultrasound COMPARISON: None. FINDINGS: The right lobe of the thyroid measures 3.5 x 1.1 x 1.9 cm. There are several tiny nodules or cysts in the right lobe. None measure over 5 mm. The left lobe of the thyroid measures 3.5 x 1.3 x 1.8 cm. There are several complex cysts in the left lobe. The largest measures 1.1 cm. IMPRESSION: Small scattered cysts and/or nodules. Electronically signed by Freddy Rodriguez 07/28/2018 2:25 PM
[2018-07-28] MEDS: ZITHROMAX 500 MG/NS 500 MG/250 ML IVPB IV SCH (16:55)
[2018-07-29] MEDS ORDERED: LOVENOX SUBQ SCH (06:00)
[2018-07-29] MEDS: SYNTHROID IV SCH (06:08)
[2018-07-29 06:25] LABS: BASO# 0.01 X1000 (0.0-0.2); BASO% 0.1 % (0.0-0.8); HEMATOCRIT 26.5 % (37.0-47.0); HEMOGLOBIN 8.8 g/dL (12.0-16.0); IMM GRAN# 0.09 X1000 (0.0-0.04); IMM GRAN% 0.8 % (0.0-0.5); LYMPH# 0.53 X1000 (1.2-3.4); LYMPH% 4.7 % (20.5-51.1); MCH 35.1 PG (27-31); MCHC 33.2 g/dL (33-37); MCV 105.6 FL (81-99); MONO# 0.67 X1000 (0.11-0.59); MONO% 5.9 % (1.7-9.3); NEUT# 10.06 X1000 (1.4-6.5); NEUT% 88.5 % (42.2-75.2); PLT 279 X1000 (130-400); RBC 2.51 XMIL (4.2-5.4); RDW 16.1 % (11.5-14.5); WBC 11.36 X1000 (4.8-10.8)
[2018-07-29 06:57] LABS: CALCIUM 7.7 mg/dL (8.8-10.2); CREATININE 0.9 mg/dL (0.5-0.9); MAGNESIUM 2.2 mg/dL (1.5-2.7); POTASSIUM 3.2 mmol/L (3.5-5.1)
[2018-07-29 07:33] LABS: LYMPHS 4 % (21-51); MONO 6 % (1-9); SEGS 90 % (42-75)
[2018-07-29] MEDS: CORDARONE PO SCH ×2 (08:50→20:20)
[2018-07-29] MEDS: OCUVITE LUTEIN & ZEAXANTHIN PO SCH (08:50)
[2018-07-29] MEDS: FOLIC ACID PO SCH (08:50)
[2018-07-29] MEDS: FERGON PO SCH (08:50)
[2018-07-29] MEDS: CYTOMEL PO SCH ×2 (08:51→09:26)
[2018-07-29] MEDS: SOLU-CORTEF IV SCH (08:51)
[2018-07-29] MEDS: MIRALAX PO SCH ×2 (08:52→20:20)
[2018-07-29] MEDS: LASIX IV SCH ×3 (08:55→22:35)
[2018-07-29] MEDS: KLOR-CON PO SCH ×2 (08:56→13:04)
[2018-07-29] MEDS ORDERED: LASIX IV SCH ×2 (09:00→22:30)
[2018-07-29] MEDS: POTASSIUM CHLORIDE 20 MEQ/SWI 20 MEQ/100 ML IVPB IV SCH ×2 (09:21→11:27)
[2018-07-29] MEDS: LOPRESSOR PO SCH ×2 (09:26→20:20)
[2018-07-29] MEDS: SANTYL OINT TOP SCH (09:26)
--- NOTE | 2018-07-29 11:10 | Diag Imaging Result Doc PS360 ---
EXAM: BA SWALLOW W/VIDEO SPEECH THER 07/29/2018 HISTORY: Difficulty swallowing TECHNIQUE: 110 images, 142 mg, 14 seconds fluoroscopy time. COMMENT: There is premature contraction of the cricopharyngeus on all swallows. No aspiration is demonstrated. There is a large hiatal hernia which is also demonstrated on the recent CT of 07/26/2018. There are tertiary contractions in the distal esophagus. There is considerable mucosal irregularity in this area and the possibility of a gastric neoplasm cannot be excluded. No history of gastric surgery was submitted. Further evaluation with endoscopy and/or upper GI series is recommended. IMPRESSION: 1. Cricopharyngeal achalasia. 2. Presbyesophagus. 3. Large hiatal hernia with possible mucosal mass. Electronically signed by Marko Clancy 07/29/2018 11:07 AM
[2018-07-29] MEDS ORDERED: LOVENOX SUBQ ONE (12:40)
[2018-07-29] MEDS: ROCEPHIN 1 GM in NS 50 ML IV SCH (13:04)
--- NOTE | 2018-07-29 13:24 | PROGRESS NOTE ---
DATE: 07/29/2018 HOSPITAL COURSE SUMMARY: Ms. Becker is an 88-year-old lady who came in with complaints of lethargy, shortness of breath and mechanical fall, and was found to have some features of myxedema, including hypothermia, significantly elevated TSH and lethargy. She was also found to have bilateral lung infiltrate and effusion, currently being treated for myxedema and pneumonia. INTERVAL HISTORY: She is about to go for modified barium swallow since she had failed her swallow evaluation yesterday. She states she is still feeling short of breath and wonders when she would be transferred to rehab. We discussed about her condition. I answered all of her questions. VITALS: Temperature 97 degrees, pulse 62, respiratory rate 18, blood pressure 117/55, saturating 91% on nonrebreather mask. PHYSICAL EXAMINATION: General: She appears in mild distress because of shortness of breath. HEENT/Neck: She does have a puffy face and loss of lateral eyelids. Her oral cavity is dry. No thyromegaly. No pallor, cyanosis, clubbing, or icterus. Respiratory: Decreased air entry, more pronounced on the left than on the right, with inspiratory crackles bilateral infrascapular region. No wheeze or rhonchi. Cardiac: S1, S2. Currently appears irregularly, irregular. No murmur, rub, or gallop. Abdomen: Soft. Nontender. Extremities: She has lower extremity edema, especially affecting the left, with mild erythema and she was treated for cellulitis recently. FLUIDS: Input and output suggests she was -1.9 L yesterday. LABS: Labs today suggestive of improving hyponatremia, hypochloremia. She has hypokalemia, which is currently being repleted, persistent leukocytosis because of hydrocortisone use. She does have resolution of acute kidney injury. Her TSH is decreasing to 14. Anti-TPO antibody is negative. MICROBIOLOGY: Blood culture, no data. IMAGING: Ultrasound of the neck did not detect any thyromegaly. ASSESSMENT AND PLAN: 1. Sepsis and acute hypoxic respiratory failure from bilateral lower lobe pneumonia. Blood culture no growth to date. Follow up final streptococcal and Legionella antigen. Continue intravenous ceftriaxone, azithromycin, and oxygenation to keep saturation more than 94%. Start patient on intravenous Lasix. 2. Myxedema. Her TSH has been improving significantly. I will adjust the dose of levothyroxine to p.o. starting tomorrow, and liothyronine from b.i.d. to daily considering her atrial fibrillation as well. Her presentation is atypical in terms of negative anti-TPO antibody and without any thyromegaly. 3. Unilateral left lower extremity edema, with hypoxia. I will get ultrasound of the lower extremity to rule out any DVT. Currently, I will give her a 1 time dose of enoxaparin for DVT prophylaxis today, and I am holding her Xarelto for possible thoracenteses tomorrow if she does not improve. 4. Acute kidney injury with hyponatremia, hypochloremia, and hyperkalemia on presentation, now improving. Her potassium is being repleted. 5. History of atrial fibrillation with rapid ventricular rate, status post pacemaker on home Xarelto. I am resuming her metoprolol cautiously considering beta blockers, especially non- selective, can prevent T4 to T3 conversion. However, considering her current tachycardia, I am resuming it. Continue her home amiodarone. Hold Xarelto as if her hypoxia does not improve she may need thoracenteses in the future. 6. Others. Continue ferrous gluconate folic acid for anemia of chronic disease as well as folic deficiency. DISPOSITION: The patient remains in [facility] for persistent hypoxia. Plan of care discussed with the patient. Yesterday, I called the patient's daughter and informed her about the plan of care. All of her questions have been answered. I am repeating chest x-ray tomorrow. Based on that I will address her hypoxia. cc: Dharmesh Jane MD
[2018-07-29] MEDS: ZITHROMAX 500 MG/NS 500 MG/250 ML IVPB IV SCH (16:35)
[2018-07-29 19:46] LABS: ALLEN TEST YES; BE 2.5 mmoll (-3.0-3.0); BLOOD TYPE ARTERIAL; HCO3-(ACT) 26.7 mmoll (20.0-26.0); METHB 1.2 % (0.0-1.5); PCO2(98.6) 42 mmHg (35-45); PO2(98.6) 51 mmHg (60-100); SAMPLE BLOOD; SAO2 87.4 % (95.0-100.0); THB 9.2 g/dL (11.5-17.4); pH(98.6) 7.42 (7.35-7.45)
[2018-07-29 19:49] LABS: MODALITY NRB; O2HB 85.1 % (95.0-99.0)
--- NOTE | 2018-07-29 20:17 | PROGRESS NOTE ---
DATE: 07/29/2018 ADDENDUM: INTERVAL HISTORY: I was informed by the nurse that the patient's shortness of breath was worsening. I evaluated the patient at bedside. She appears diaphoretic and is working hard to breathe. I ordered stat ABG, portable chest x-ray, and instructed the respiratory therapist to start patient on BiPAP. After the BiPAP, her saturations have increased to 95%. Before that on nonrebreather mask, she was saturating in the low 80s. I will discuss with the night team about following up with the chest x-ray results and increasing the Lasix dose accordingly. ADDENDUM: Chest xray suggests acute bilateral pulmonary edema. I will increased Lasix dose to 60 mg IV Q6H. I called patient's sister Ms. Green; however her picked up. I informed him and updated him about patient's clinical condition that her oxygen levels are decreasing and we are starting her on high pressure mask breathing. cc: Dharmesh Jane MD MTDD
--- NOTE | 2018-07-29 20:23 | Diag Imaging Result Doc PS360 ---
EXAM: CHEST-PORTABLE 07/29/2018 HISTORY: dyspnea TECHNIQUE: AP portable at 0812 COMMENT: There is cardiomegaly. There are bilateral pleural effusions. There is worsening alveolar opacity of both lungs compared to 07/27/2018. IMPRESSION: Worsening pulmonary edema and pleural effusions. The possibility of pneumonia cannot be excluded. Electronically signed by Marko Clancy 07/29/2018 8:21 PM
[2018-07-30] MEDS: ROCEPHIN 1 GM in NS 50 ML IV SCH ×2 (00:22→13:50)
[2018-07-30] MEDS: LASIX IV SCH ×4 (04:19→17:35)
[2018-07-30 05:09] LABS: ALLEN TEST YES; BE 8.8 mmoll (-3.0-3.0); BLOOD TYPE ARTERIAL; HCO3-(ACT) 31.7 mmoll (20.0-26.0); METHB 0.7 % (0.0-1.5); O2(CT) 11.7 mL/dL (15.0-23.0); O2HB 91.9 % (95.0-99.0); PCO2(98.6) 42 mmHg (35-45); PO2(98.6) 61 mmHg (60-100); SAMPLE BLOOD; SAO2 94.2 % (95.0-100.0)
[2018-07-30 05:10] LABS: MODALITY BI PAP
[2018-07-30 06:18] LABS: CALCIUM 8.1 mg/dL (8.8-10.2); MAGNESIUM 1.9 mg/dL (1.5-2.7); POTASSIUM 2.9 mmol/L (3.5-5.1)
[2018-07-30] MEDS: SYNTHROID PO SCH (06:29)
--- NOTE | 2018-07-30 07:19 | Diag Imaging Result Doc PS360 ---
EXAM: CHEST-PORTABLE 07/30/2018 HISTORY: dyspnea TECHNIQUE: AP portable at 0541 COMMENT: There is diffuse alveolar and interstitial opacity bilaterally. The patient is rotated slightly to the right. Considering this there has been no appreciable change since the previous examination of 07/29/2018. Compared to 07/27/2018 the pulmonary opacities are clearly worse. IMPRESSION: Pulmonary edema and/or pneumonia. Electronically signed by Marko Clancy 07/30/2018 7:17 AM
--- NOTE | 2018-07-30 08:41 | Extremity Venous Study ---
PROCEDURE NAME: Venous U/S Left Leg - 07/29/2018 REFERRING PHYSICIAN: Dr. Jane. INTERPRETING PHYSICIAN: Dr. Berumen. TECHNOLOGIST: Ramiro. FINDINGS: The patient has left leg pain. The left lower extremity is imaged. The common femoral, superficial femoral, deep femoral, popliteal, posterior tibial, peroneal, and greater saphenous veins are imaged. The right common femoral vein is imaged for comparison purposes. Doppler is used to evaluate the veins for spontaneity, phasicity, respiratory excursion, and distal augmentation. All veins are compressible. No intraluminal clot is seen. Edema is noted in the calf. INTERPRETATION: No evidence of deep or superficial venous thrombosis in the left lower extremity in the veins identified. cc: MD Dharmesh Ernst MD
[2018-07-30] MEDS: SOLU-CORTEF IV SCH (09:09)
[2018-07-30] MEDS: CORDARONE PO SCH ×2 (09:09→20:18)
[2018-07-30] MEDS: OCUVITE LUTEIN & ZEAXANTHIN PO SCH (09:09)
[2018-07-30] MEDS: CYTOMEL PO SCH (09:09)
[2018-07-30] MEDS: SANTYL OINT TOP SCH (09:10)
[2018-07-30] MEDS: FERGON PO SCH (09:10)
[2018-07-30] MEDS: MIRALAX PO SCH ×2 (09:10→20:20)
[2018-07-30] MEDS: LOPRESSOR PO SCH ×2 (09:10→20:20)
[2018-07-30] MEDS: FOLIC ACID PO SCH (09:10)
--- NOTE | 2018-07-30 10:45 | PROGRESS NOTE ---
DATE: 07/30/2018 SUBJECTIVE: The patient seems to be tolerating the BiPAP machine. Oxygen saturation has been more stable. She is still complaining of some shortness of breath. She is completely awake, alert, and oriented. She is able to recognize family members at the bedside and follow commands. She is having bowel movements and eating. Potassium level is low, likely due to furosemide, which I will continue but I will decrease the dose from 60 q.6 hours to 40 q.8 hours, and since she has a negative balance of almost 5 L. I have requested an evaluation by pulmonary department due to her respiratory failure. OBJECTIVE: Vital Signs: Temperature 97.2 degrees, pulse 83, respiratory rate 18, blood pressure 106/46, oxygen saturation 96 on the BiPAP machine. HEENT: Head normocephalic. No trauma. PERRLA. Neck: Supple. No JVD. No masses. Central trachea. Chest: Coarse breath sounds bilaterally with crackles bilaterally, more evident on the left side. Abdomen: Soft, nontender, nondistended. No hepatosplenomegaly. Extremities: Bilateral lower extremity edema, especially on the left side, but no pain, 2 to 3+. She has, on the left side, some erythema due to previous cellulitis which has been treated recently. Laboratory: Sodium 139, potassium 2.9, chloride 99, bicarbonate 30, BUN 15, creatinine 1, glucose 121, calcium 8.1, magnesium 1.9. ASSESSMENT AND PLAN: 1. Sepsis due to bilateral lower lobe pneumonia. Continue with ceftriaxone and azithromycin. Streptococcal and legionella antigens are negative. Continue with the same management. Oxygen saturation has been more stable but we have been using the BiPAP machine. 2. Acute hypoxemic respiratory failure, likely secondary to bilateral pneumonia. We will continue with the same management. Pulmonary department has been consulted. 3. Bilateral lower lobe pneumonia. Aware. Continue with ceftriaxone and azithromycin. She came in with low temperature/hypothermia upon admission but now seems to be better. 4. Hypothyroidism. Continue with the same management for now. She seems to be getting better. 5. Unilateral left lower extremity edema. Ultrasound did not show any acute deep venous thrombosis. Continue with the same management. 6. History of atrial fibrillation with rapid ventricular response, status post pacemaker, on home Xarelto. Continue with the same management. Continue anticoagulation, beta herminia, amiodarone. 7. Anemia. Continue with the same treatment. 8. We will continue treatment in the [facility] unit due to her management with the BiPAP machine due to acute hypoxemic respiratory failure due to pneumonia. Family members at the bedside. All their questions were answered. cc: Pratik Amaro MD
[2018-07-30] MEDS: KLOR-CON PO SCH ×2 (11:36→20:18)
[2018-07-30] MEDS: ZITHROMAX 500 MG/NS 500 MG/250 ML IVPB IV SCH (16:36)
[2018-07-30] MEDS: XARELTO PO SCH (17:35)
[2018-07-31] MEDS: ROCEPHIN 1 GM in NS 50 ML IV SCH ×2 (00:33→12:13)
[2018-07-31] MEDS: LASIX IV SCH ×2 (02:33→15:30)
--- NOTE | 2018-07-31 03:52 | CONSULTATION ---
DATE OF CONSULTATION: 07/30/2018 REQUESTING PROVIDER: Pratik Amaro MD REASON FOR CONSULTATION: Hypoxemic respiratory failure. HISTORY OF PRESENT ILLNESS: This is an 88-year-old female with medical history of cerebrovascular accident, essential hypertension, atrial fibrillation with rapid ventricular response, oral cancer and gastroesophageal reflux disease. She presented to the ER on 07/26/2018 after a mechanical fall. Initial workup in the ER revealed suspected sepsis secondary to bilateral lower lobe pneumonia and possibly left lower extremity cellulitis, myxedema, suspected acute kidney injury with hyponatremia, hypochloremia and hyperkalemia, lethargy, mechanical fall, and severe hypothyroidism. She has been admitted to the [facility] for further evaluation and management. During this hospital stay, her respiratory status keeps progressively declining. She was put on BiPAP since last night. At the time of my examination, the patient is resting in bed with a BiPAP mask on. She is alert and oriented x3, but her mouth is pretty dry with the BiPAP mask on. She has very poor cough effort. She reports no chest pain or abdominal pain at this time. She states she is tired and she wants to rest. There is no family at the bedside. All other information is obtained from the e-chart. PAST MEDICAL AND SURGICAL HISTORY: 1. Cerebrovascular accident based on CT scan, on chronic anticoagulation with Xarelto. 2. Essential hypertension. 3. Atrial fibrillation with rapid ventricular rate, status post pacemaker placement and also on Xarelto. 4. 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 5. Gastroesophageal reflux disease. 6. Hip surgery in 2018. 7. Peripheral arterial disease and left lower extremity percutaneous posterior tibial artery balloon angioplasty in 02/2018. SOCIAL HISTORY: The patient has no history of alcohol, tobacco or illicit drug use. FAMILY HISTORY: Unknown. ALLERGIES: No known drug allergies. REVIEW OF SYSTEMS: Difficult to be obtained. PHYSICAL EXAMINATION: Vital signs: Temperature 97.6 degrees, blood pressure 124/51, pulse 64, respiratory rate 21, oxygen saturation 96% on the BiPAP with FIO2 of 80% and pressure 14/5.General: Chronically ill appearing, resting in bed with no acute distress at this time. She does have generalized anasarca with puffy face, puffy bilateral upper and lower extremities. HEENT: Periorbital edema. Trachea midline. Mucosa pink and slightly dry. Respiratory: Respirations even, unlabored. Symmetrical excursion. Auscultation revealed diminished breathing sounds bibasilarly with early inspiratory crackles in bilateral middle and lower lung zones. Cardiovascular: Regular rate and rhythm, with no murmur noted. Gastrointestinal: Normoactive bowel sounds in all 4 quadrants. Soft, nontender. Extremities: Bilateral lower extremity edema extending up to thigh level. Dorsalis pedis difficult to palpate. No cyanosis. No clubbing. Left lower extremity slightly warmer than right lower extremity, with more pink color. Neurologic: Alert and oriented x3. Speech fluent. Follows commands. LABORATORY DATA: Sodium 139, potassium 2.9, chloride 99, carbon dioxide 30, BUN 15, creatinine 1.0 and glucose 121. ABG pH 7.50, pCO2 is 42, pO2 is 61, HCO3 is 31.7, base excess 8.8 and oxyhemoglobin 91.9. DIAGNOSTIC DATA: Chest x-ray revealed diffuse alveolar and interstitial opacity bilaterally; compared to 02/26/2018, the pulmonary opacities are clearly worse. ASSESSMENT: This is an 88-year-old female with a medical history of cerebrovascular accident, essential hypertension, atrial fibrillation with rapid ventricular rate, mouth cancer and gastroesophageal reflux disease. She has been admitted to the cardiac intensive care unit since 07/26/2018 with suspected sepsis, bilateral lower lobe pneumonia, possible left lower extremity cellulitis, myxedema, suspected acute kidney injury with hyponatremia, hypochloremia, and hyperkalemia, lethargy, s/p mechanical fall, and severe hypothyroidism. 1. Acute hypoxemic respiratory failure which is progressively worsening. Currently the patient required bilevel positive airway pressure. 2. Bilateral lower lobe pneumonia. 3. Sepsis. 4. Unilateral left lower extremity edema. PLAN: 1. Continue BiPAP and supplemental oxygen as needed. 2. Continue antibiotic and steroid, and diuretics as needed; consider bronchodilators as needed 3. Follow up with ABG, CBC, BMP and chest x-ray. 4. Further recommendations pending hospital course. Thank you for the courtesy of this consult. Dictated by SUDHEER Funk for Kayla Jerez MD cc: SUDHEER Funk MD [facility]
[2018-07-31 05:10] LABS: ALLEN TEST YES; BLOOD TYPE ARTERIAL; HCO3-(ACT) 35.6 mmoll (20.0-26.0); METHB 0.7 % (0.0-1.5); O2(CT) 14.2 mL/dL (15.0-23.0); PO2(98.6) 53 mmHg (60-100); SAMPLE BLOOD; SAO2 89.7 % (95.0-100.0); THB 11.5 g/dL (11.5-17.4); pH(98.6) 7.48 (7.35-7.45)
[2018-07-31 05:12] LABS: MODALITY NRB; O2HB 87.7 % (95.0-99.0); PCO2(98.6) 53 mmHg (35-45)
[2018-07-31 06:03] LABS: EOS# 0.03 X1000 (0.0-0.7); EOS% 0.2 % (0.0-10.0); HEMATOCRIT 27.3 % (37.0-47.0); HEMOGLOBIN 8.8 g/dL (12.0-16.0); IMM GRAN# 0.11 X1000 (0.0-0.04); IMM GRAN% 0.9 % (0.0-0.5); LYMPH# 0.53 X1000 (1.2-3.4); LYMPH% 4.2 % (20.5-51.1); MCH 34.9 PG (27-31); MCHC 32.2 g/dL (33-37); MCV 108.3 FL (81-99); MONO# 0.61 X1000 (0.11-0.59); MONO% 4.8 % (1.7-9.3); MPV 8.8 FL (7.4-10.4); NEUT# 11.33 X1000 (1.4-6.5); NEUT% 89.9 % (42.2-75.2); PLT 248 X1000 (130-400); RBC 2.52 XMIL (4.2-5.4); WBC 12.61 X1000 (4.8-10.8)
[2018-07-31] MEDS: SYNTHROID PO SCH (06:03)
[2018-07-31 06:53] LABS: CALCIUM 7.8 mg/dL (8.8-10.2); CREATININE 0.9 mg/dL (0.5-0.9)
[2018-07-31 06:54] LABS: POTASSIUM 2.5 mmol/L (3.5-5.1)
--- NOTE | 2018-07-31 07:14 | Diag Imaging Result Doc PS360 ---
EXAM: CHEST-1 VIEW 07/31/2018 HISTORY: SOB TECHNIQUE: AP portable at 0529 COMMENT: There is diffuse interstitial and alveolar opacity with some apparent sparing and hyperinflation of the right middle lobe. The latter finding was not present on 07/30/2018. IMPRESSION: Pulmonary edema and/or pneumonia. Electronically signed by Marko Clancy 07/31/2018 7:12 AM
[2018-07-31] MEDS ORDERED: POTASSIUM CHLORIDE 20% LIQUID PO ONE ×2 (07:57→12:00)
[2018-07-31] MEDS: SOLU-CORTEF IV SCH ×2 (08:21→08:30)
[2018-07-31] MEDS: CORDARONE PO SCH ×2 (08:22→20:43)
[2018-07-31] MEDS: CYTOMEL PO SCH (08:22)
[2018-07-31] MEDS: LOPRESSOR PO SCH ×2 (08:23→20:43)
[2018-07-31] MEDS: FOLIC ACID PO SCH (08:23)
[2018-07-31] MEDS: FERGON PO SCH (08:23)
[2018-07-31] MEDS: MIRALAX PO SCH ×2 (08:24→20:32)
[2018-07-31] MEDS: OCUVITE LUTEIN & ZEAXANTHIN PO SCH (08:27)
[2018-07-31] MEDS: SANTYL OINT TOP SCH (08:28)
--- NOTE | 2018-07-31 10:17 | PROGRESS NOTE ---
DATE: 07/31/2018 SUBJECTIVE: This patient at this moment is using the nonrebreathing mask, but we have been using mostly the BiPAP machine. She is still complaining of shortness of breath and she, in general, is not feeling good. She still does have pulmonary edema and/or pneumonia bilaterally with diffuse interstitial and alveolar opacity with some apparent sparing and hyperinflation of the right middle lobe that was not present on 07/30/2018. Pulmonary Department has been on board and I have consulted the Infectious Disease doctor to evaluate this patient. OBJECTIVE: Vital Signs: Temperature 97.8 degrees, pulse 67, respiratory rate 15, blood pressure 126/45, oxygen saturation 90 on a nonrebreathing mask. HEENT: Head normocephalic. No trauma. PERRLA. Neck: Supple. No JVD. No masses. Central trachea. Chest: Coarse breath sounds bilaterally with crackles bilaterally, more evident on the left side and right upper thoracic area. Abdomen: Soft, nontender, nondistended. No hepatosplenomegaly. Extremities: Bilateral lower extremity edema, especially on the left side, around 2+. She has on the left side some erythema due to previous cellulitis, which has been treated recently. LABORATORY DATA: WBC 12.6, hemoglobin 8.8, hematocrit 27.3, platelets 248,000. Sodium 140, potassium 2.5, chloride 93, bicarbonate 35, BUN 13, creatinine 0.9, glucose 131, calcium 7.8, magnesium 1.7. ASSESSMENT AND PLAN: 1. Sepsis due to bilateral multifocal pneumonia. X-ray today showed also an area of hyperinflation on the right middle lobe. We will continue with the same management. Pulmonary Department on board. Continue breathing treatment, oxygen supplementation, antibiotics. 2. Bilateral multifocal pneumonia as above. I will ask for IgE, IgM, and IgA. I have requested an evaluation by Infectious Disease Department. 3. Acute hypoxemic and hypercarbic respiratory failure, likely secondary to bilateral pneumonia. Continue with same management. Pulmonary Department on board. 4. Hypothyroidism. Continue with same management for now. She seems to be stable. 5. Unilateral left lower extremity edema. Ultrasound did not show any acute DVT. Continue with same management. 6. History of atrial fibrillation with rapid ventricular response, status post pacemaker, on home Xarelto. Continue with same management. Continue with anticoagulation, beta herminia, amiodarone. 7. Anemia. Continue with same treatment. 8. Hypokalemia. We will replace the potassium during the day and also I have requested a new BMP at 8 p.m. 9. Generalized weakness and physical deconditioning. Once this patient is a bit better, I will request physical therapy, but probably we can start with a range of motion. 10. Overall, her prognosis is guarded due to her age, comorbidities. We have a negative balance of 6.97 L, but she is still having shortness of breath. I have requested an evaluation by Infectious Disease Department, we will start from there. cc: Pratik Amaro MD
[2018-07-31] MEDS: MAXIPIME 1 GM in NS 50 ML IV SCH ×2 (15:33→22:54)
[2018-07-31] MEDS: KLOR-CON PO SCH (15:34)
[2018-07-31] MEDS: XARELTO PO SCH (17:16)
[2018-07-31] MEDS: ZYVOX PO SCH ×2 (17:16→20:43)
--- NOTE | 2018-07-31 19:22 | INFECTIOUS DISEASE CONSULT REP ---
DATE: 07/31/2018 CONCLUSION: The patient is admitted to the hospital with bilateral diffuse alveolar and interstitial opacities. I think this could be due to a pneumonia. Also, I think it is possible that the patient has pulmonary venous congestion as well, or a combination of both. RECOMMENDATIONS: 1. I have discontinued Rocephin and azithromycin, and started the patient on Zyvox and cefepime. 2. I have also ordered a procalcitonin level. 3. I agree with obtaining immunoglobulin levels. REVIEW OF SYSTEMS: Unable to be obtained. PAST MEDICAL HISTORY: Positive for: 1. Stroke. 2. Hypertension. 3. Atrial fibrillation. 4. Oral cancer. 5. Gastroesophageal reflux disease. 6. Peripheral vascular disease. PAST SURGICAL HISTORY: Positive for: 1. Pacemaker. 2. Hip surgery. 3. Peripheral arterial surgery. HOME MEDICATIONS: Include: 1. Metoprolol. 2. Ferrous gluconate. 3. Amlodipine. 4. Amiodarone. 5. Xarelto. 6. Furosemide. 7. Spironolactone. SOCIAL HISTORY: The patient does not smoke cigarettes or drink alcoholic beverages or use illicit drug use. PHYSICAL EXAMINATION: Vital Signs: Temperature is 97.6 degrees, pulse 65, respirations 17, blood pressure 122/48. The patient weighs 129 pounds. General: This is an ill-appearing, elderly female. Head, Eyes, Ears, Nose, and Throat: She has a BiPAP mask on. She can hear my spoken words and I can understand sometimes when she is talking. I did not see any white patches on her tongue. Neck: No meningismus. Lungs: Bibasilar rales. Cardiovascular: Heart rate is regular. Abdomen: Soft and nontender. Neurologic: The patient is awake. She can move her extremities. There is no tremor. Thank you for the consult. cc: Dale Damon MD
[2018-07-31 21:13] LABS: AGAP 10; BUN 14 mg/dL (8-22); CHLORIDE 94 mmol/L (98-107); COSMO 283; GLUCOSE 162 mg/dL (70-104); POTASSIUM 3.8 mmol/L (3.5-5.1); SODIUM 140 mmol/L (136-145); TCO2 36 mmol/L (25-35)
[2018-07-31 21:14] LABS: CALCIUM 7.8 mg/dL (8.8-10.2); CREATININE 0.8 mg/dL (0.5-0.9); ESTIMATED GFR > 60
[2018-08-01] MEDS: LASIX IV SCH (02:56)
[2018-08-01 04:41] LABS: ALLEN TEST YES; BE 1.2 mmoll (-3.0-3.0); BLOOD TYPE ARTERIAL; HCO3-(ACT) 25.8 mmoll (20.0-26.0); O2(CT) 15.1 mL/dL (15.0-23.0); O2HB 92.4 % (95.0-99.0); PCO2(98.6) 41 mmHg (35-45); PO2(98.6) 65 mmHg (60-100); SAMPLE BLOOD; SAO2 95.5 % (95.0-100.0); THB 11.6 g/dL (11.5-17.4); pH(98.6) 7.41 (7.35-7.45)
[2018-08-01 04:42] LABS: MODALITY BI PAP
[2018-08-01 05:57] LABS: EOS# 0.06 X1000 (0.0-0.7); EOS% 0.4 % (0.0-10.0); HEMATOCRIT 27.4 % (37.0-47.0); HEMOGLOBIN 8.7 g/dL (12.0-16.0); IMM GRAN% 0.7 % (0.0-0.5); LYMPH# 0.48 X1000 (1.2-3.4); LYMPH% 3.4 % (20.5-51.1); MCH 34.8 PG (27-31); MCHC 31.8 g/dL (33-37); MCV 109.6 FL (81-99); MONO# 0.39 X1000 (0.11-0.59); MONO% 2.8 % (1.7-9.3); NEUT% 92.7 % (42.2-75.2); PLT 240 X1000 (130-400); RDW 15.6 % (11.5-14.5); WBC 14.13 X1000 (4.8-10.8)
[2018-08-01] MEDS: MAXIPIME 1 GM in NS 50 ML IV SCH ×3 (06:03→22:23)
[2018-08-01] MEDS: SYNTHROID PO SCH (06:04)
[2018-08-01 06:29] LABS: AGAP 10; BUN 13 mg/dL (8-22); CALCIUM 8.3 mg/dL (8.8-10.2); CHLORIDE 91 mmol/L (98-107); COSMO 281; CREATININE 0.8 mg/dL (0.5-0.9); ESTIMATED GFR > 60; GLUCOSE 127 mg/dL (70-104); POTASSIUM 3.1 mmol/L (3.5-5.1); SODIUM 140 mmol/L (136-145); TCO2 39 mmol/L (25-35)
[2018-08-01] MEDS ORDERED: KLOR-CON PO ONE (07:19)
--- NOTE | 2018-08-01 08:09 | Diag Imaging Result Doc PS360 ---
EXAM: CHEST-1 VIEW INDICATION: SOB TECHNIQUE: One view COMPARISON: 07/31/2018 FINDINGS: Diffuse bilateral interstitial and airspace opacities are again noted. The right middle lobe appears to be more involved as compared to the previous study. The rest of the lung on the right as well as the left are essentially stable. No other new consolidation is identified. Cardiac silhouette is stable. IMPRESSION: Bilateral diffuse infiltrates with increasing opacity in the right middle lobe as compared to the previous study. Electronically signed by Andre Aquino 08/01/2018 8:07 AM
[2018-08-01] MEDS: SANTYL OINT TOP SCH (08:37)
[2018-08-01] MEDS: MAG-OX PO SCH ×4 (08:37→21:02)
[2018-08-01] MEDS: CORDARONE PO SCH ×2 (08:38→21:03)
[2018-08-01] MEDS: ZYVOX PO SCH ×2 (08:38→21:02)
[2018-08-01] MEDS: LOPRESSOR PO SCH ×2 (08:38→21:02)
[2018-08-01] MEDS: FOLIC ACID PO SCH (08:38)
[2018-08-01] MEDS: FERGON PO SCH (08:43)
[2018-08-01] MEDS: KLOR-CON PO SCH (08:46)
[2018-08-01] MEDS: MIRALAX PO SCH ×2 (08:46→21:03)
[2018-08-01] MEDS: OCUVITE LUTEIN & ZEAXANTHIN PO SCH (08:46)
--- NOTE | 2018-08-01 09:19 | PROGRESS NOTE ---
DATE: 08/01/2018 SUBJECTIVE: At this moment, this patient is using the BiPAP machine, 100% FiO2, she seems to be tolerating. She looks euvolemic for me. We have a negative balance of 9.5 L. I will decrease the frequency of the furosemide to see how she does. She is hypokalemic. I will replace the potassium. OBJECTIVE: Vital Signs: Temperature 99 degrees, pulse 102, respiratory rate 18, blood pressure 94/56, oxygen saturation 97% on the BiPAP machine, 100% FiO2. HEENT: Head normocephalic, no trauma, PERRLA. Neck: Supple. No JVD. No masses. Central trachea. Chest: Coarse breath sounds bilaterally with some crackles mostly at the bases, more evident on the left side and right upper thoracic area. Abdomen: Soft, nontender, nondistended. No hepatosplenomegaly. Extremities: Trace lower extremity edema. No clubbing. No cyanosis. On the left side, she has some erythema due to previous cellulitis that has been already treated. Neurological: This patient is alert. She is oriented. She is following commands. LABORATORY: WBC 14.1, hemoglobin 8.7, hematocrit 27.4, platelets 240,000. Sodium 140, potassium 3.1, chloride 91, bicarbonate 39. BUN 13, creatinine 0.8, glucose 127 calcium 8.3, magnesium 1.6. ASSESSMENT AND PLAN: 1. Sepsis due to bilateral multifocal pneumonia. X-ray for me looks maybe a little bit better compared with yesterday, but still she has a lot of infiltrates bilaterally and pleural effusion. We will continue with antibiotics. Infectious Disease Department already evaluated this patient and they are managing the medications. 2. Bilateral multifocal pneumonia, as above, continue to monitor. 3. Acute hypoxemic and hypercarbic respiratory failure, likely secondary to bilateral pneumonia. Continue with same management. Pulmonary Department on board. 4. Hypothyroidism. Continue with same management for now. 5. Unilateral left lower extremity edema. Ultrasound did not show any acute DVT. She apparently had a cellulitis recently in that area that has been treated. She is on antibiotics, continue with same management. The edema is almost resolved. 6. History of atrial fibrillation and RVR, status post pacemaker on Xarelto, continue with same management. 7. Anemia, continue with same treatment. 8. Hypokalemia. We will replace the potassium. We will continue to monitor. 9. Borderline hypomagnesemia, I will replace the magnesium. 10. Generalized weakness and physical deconditioning. Once this patient is better, we will request physical therapy, probably we can start with range of motion. 11. Overall, her prognosis is warranted due to her age, comorbidities. I discussed the case yesterday with the son at the bedside. He seems to understand. We will continue with the same management. cc: Pratik Amaro MD
[2018-08-01] MEDS: XARELTO PO SCH (16:09)
[2018-08-02 04:43] LABS: BLOOD TYPE ARTERIAL; SAMPLE BLOOD
[2018-08-02 04:44] LABS: ALLEN TEST YES; BE 16.5 mmoll (-3.0-3.0); HCO3-(ACT) 37.8 mmoll (20.0-26.0); METHB 0.8 % (0.0-1.5); O2(CT) 10.8 mL/dL (15.0-23.0); O2HB 94.2 % (95.0-99.0); PCO2(98.6) 49 mmHg (35-45); PO2(98.6) 68 mmHg (60-100); SAO2 96.3 % (95.0-100.0); THB 8.1 g/dL (11.5-17.4); pH(98.6) 7.53 (7.35-7.45)
[2018-08-02 04:47] LABS: MODALITY BI PAP
[2018-08-02 06:00] LABS: BASO# 0.01 X1000 (0.0-0.2); BASO% 0.1 % (0.0-0.8); EOS# 0.13 X1000 (0.0-0.7); HEMATOCRIT 25.9 % (37.0-47.0); IMM GRAN# 0.09 X1000 (0.0-0.04); IMM GRAN% 0.7 % (0.0-0.5); LYMPH# 0.55 X1000 (1.2-3.4); LYMPH% 4.3 % (20.5-51.1); MCH 34.2 PG (27-31); MCHC 30.9 g/dL (33-37); MCV 110.7 FL (81-99); MONO# 0.32 X1000 (0.11-0.59); MONO% 2.5 % (1.7-9.3); MPV 9.1 FL (7.4-10.4); NEUT# 11.59 X1000 (1.4-6.5); NEUT% 91.4 % (42.2-75.2); PLT 233 X1000 (130-400); RBC 2.34 XMIL (4.2-5.4); RDW 15.5 % (11.5-14.5); WBC 12.69 X1000 (4.8-10.8)
[2018-08-02 06:05] LABS: AGAP 10; BUN 13 mg/dL (8-22); CALCIUM 8.1 mg/dL (8.8-10.2); CHLORIDE 93 mmol/L (98-107); COSMO 279; CREATININE 0.7 mg/dL (0.5-0.9); ESTIMATED GFR > 60; GLUCOSE 114 mg/dL (70-104); POTASSIUM 3.8 mmol/L (3.5-5.1); SODIUM 139 mmol/L (136-145); TCO2 36 mmol/L (25-35)
[2018-08-02] MEDS: MAXIPIME 1 GM in NS 50 ML IV SCH ×3 (06:08→22:23)
[2018-08-02] MEDS: SYNTHROID PO SCH (06:08)
--- NOTE | 2018-08-02 07:55 | Diag Imaging Result Doc PS360 ---
EXAM: CHEST-1 VIEW INDICATION: SOB TECHNIQUE: One view COMPARISON: 08/01/2018 FINDINGS: Diffuse bilateral infiltrates are grossly unchanged. No new consolidation is identified. Cardiac silhouette is stable. IMPRESSION: Stable chest. Electronically signed by Andre Aquino 08/02/2018 7:53 AM
--- NOTE | 2018-08-02 08:26 | PROGRESS NOTE ---
DATE: 08/02/2018 SUBJECTIVE: This patient is still using the BiPAP machine. She looks euvolemic for me. I will continue with same management. We have a negative balance of 9.2 L. OBJECTIVE: Vital Signs: Temperature 98.3 degrees, pulse 68, respiratory rate 18, blood pressure 127/47, oxygen saturation 100% on the BiPAP machine. HEENT: Head normocephalic. No trauma. PERRLA. Neck: Supple. No JVD. No masses. Central trachea. Chest: Coarse breath sounds bilaterally with some rales at the bases, more evident on the left side and right upper thoracic area. Abdomen: Soft, nontender, nondistended. No hepatosplenomegaly. Extremities: Trace lower extremity edema. No clubbing. No cyanosis. On the left side, she has an erythema due to previous cellulitis that has been already treated. Neurological: This patient is alert. She is oriented. She is following commands but she is weak. LABORATORY DATA: WBC 12.6, hemoglobin 8, hematocrit 25.9, platelets 233,000. Sodium 139, potassium 3.8, chloride 93, bicarbonate 36, BUN 13, creatinine 0.7, glucose 114, calcium 8.1, magnesium 1.8. ASSESSMENT AND PLAN: 1. Sepsis due to bilateral multifocal pneumonia. X-ray without no big changes compared with yesterday. She still has a lot of infiltrates bilaterally, mild pleural effusion. We will continue with antibiotics. We will continue with Lasix once a day. Infectious Disease Department as well as Pulmonary Department on board. 2. Bilateral multifocal pneumonia, as above. Continue to monitor. 3. Acute hypoxemic and hypercarbic respiratory failure, likely secondary to bilateral pneumonia. Continue with same management. Pulmonary Department on board. 4. Hypothyroidism. Continue with same treatment. 5. Unilateral left lower extremity edema. Ultrasound did not show any acute deep venous thrombosis. Apparently, she had cellulitis recently and has been treated. She is on antibiotics at this moment, and we will continue with same treatment. The edema is much better, trace edema at this point. 6. History of atrial fibrillation with rapid ventricular response, status post pacemaker on Xarelto. Continue same management. 7. Anemia. Continue with same treatment. 8. Hypokalemia, resolved. 9. Generalized weakness and physical deconditioning. We requested already physical therapy. Probably we will need to continue with mostly range of motion. 10. Overall her prognosis is guarded due to her age, comorbidities, high oxygen required, current presentation. The case has been discussed with the son at the bedside a couple of days ago and he seems to understand that this patient is remarkably sick. We will continue with the same management. Pulmonary Department and Infectious Disease Department on board. cc: Pratik Amaro MD
[2018-08-02] MEDS: CORDARONE PO SCH ×2 (08:36→20:46)
[2018-08-02] MEDS: LOPRESSOR PO SCH ×2 (08:36→20:46)
[2018-08-02] MEDS: ZYVOX PO SCH ×2 (08:36→20:46)
[2018-08-02] MEDS: FOLIC ACID PO SCH (08:36)
[2018-08-02] MEDS: KLOR-CON PO SCH (08:37)
[2018-08-02] MEDS: LASIX IV SCH (08:38)
[2018-08-02] MEDS: MIRALAX PO SCH ×2 (08:38→20:47)
[2018-08-02] MEDS: OCUVITE LUTEIN & ZEAXANTHIN PO SCH (08:39)
[2018-08-02] MEDS: SANTYL OINT TOP SCH (08:39)
--- NOTE | 2018-08-02 09:07 | INFECTIOUS DISEASE PROGRESS NO ---
DATE: 08/02/2018 HISTORY OF PRESENT ILLNESS: The patient is admitted to the hospital with bilateral diffuse infiltrates, the exact etiology of which is uncertain to me. She has received quite a bit of antibiotics and the chest x-ray does not show any clearing. MEDICATIONS: The patient was initially on Rocephin and azithromycin, and now for the past 2 days, she has been on cefepime and Zyvox. PHYSICAL EXAMINATION: Vital Signs: Temperature is 98.3 degrees, pulse 68, respirations 19, blood pressure is 127/47. General: This is an ill-appearing, elderly female. She seems to be dyspneic even with a BiPAP mask on and at bed rest. Head/eyes/ears/nose/throat: She can hear my spoken words and see near objects as mentioned above. She is wearing a BiPAP mask. I got a little bit of a look in her mouth. I did not see any white patches. Neck: Supple. Lungs: Clear to auscultation. Cardiovascular: Heart rate is regular. Abdomen: Soft and nontender. Neurologic: The patient is alert. She can move her extremities. There is no tremor. Thorax: The patient has a pacemaker in place. The site is not erythematous or swollen. Neurologic: The patient is awake. She tries to talk but it is hard to do it with a BiPAP mask. She can move her extremities but she is weak. She does not have a tremor. LAB AND X-RAY STUDIES: Chest x-ray shows bilateral infiltrates which have not improved. CBC shows a white count of 12,690, hemoglobin is 8 and platelet count is 233,000. Creatinine is 0.7, GFR is greater than 60. Arterial blood gases show a pH of 7.53, a PO2 of 68, and a pCO2 of 49. Procalcitonin is 0.23, which is in the realm of being unlikely that the patient has pneumonia. The IgA is 122. The IgG is 609. Blood cultures are negative. Chest x-ray shows bilateral infiltrates. ASSESSMENT AND PLAN: The patient has bilateral pulmonary infiltrates. The procalcitonin suggests that it is not due to pneumonia but I still think that is a possibility. For now, I am going to continue with her 2 antibiotics that we recently switched her to, namely cefepime and Zyvox, but if she does not get any better, I would suggest doing a bronchoscopy with biopsy if that is possible to do without her having to be on a respirator. Also, the patient's IgG of 609 is in my opinion is not significant and I do not think it requires giving the patient intravenous immunoglobulin. COMORBIDITIES: She is elderly. She has a history of oral cancer and gastroesophageal reflux disease. She has also had a stroke in the past. cc: Dale Damon MD
[2018-08-02] MEDS: FERGON PO SCH (15:51)
[2018-08-02] MEDS: XARELTO PO SCH (16:50)
[2018-08-03 03:59] LABS: BLOOD TYPE ARTERIAL; SAMPLE BLOOD
[2018-08-03 04:00] LABS: ALLEN TEST YES; BE 14.5 mmoll (-3.0-3.0); HCO3-(ACT) 36.2 mmoll (20.0-26.0); METHB 0.7 % (0.0-1.5); MODALITY BI PAP; O2(CT) 11.1 mL/dL (15.0-23.0); O2HB 94.2 % (95.0-99.0); PCO2(98.6) 49 mmHg (35-45); PO2(98.6) 67 mmHg (60-100); SAO2 95.9 % (95.0-100.0); THB 8.3 g/dL (11.5-17.4); pH(98.6) 7.51 (7.35-7.45)
[2018-08-03 06:03] LABS: BASO# 0.01 X1000 (0.0-0.2); BASO% 0.1 % (0.0-0.8); EOS% 1.6 % (0.0-10.0); HEMATOCRIT 27.3 % (37.0-47.0); HEMOGLOBIN 8.6 g/dL (12.0-16.0); IMM GRAN# 0.07 X1000 (0.0-0.04); IMM GRAN% 0.6 % (0.0-0.5); LYMPH# 0.59 X1000 (1.2-3.4); LYMPH% 4.8 % (20.5-51.1); MCH 34.4 PG (27-31); MCHC 31.5 g/dL (33-37); MCV 109.2 FL (81-99); MONO# 0.25 X1000 (0.11-0.59); MPV 9.1 FL (7.4-10.4); NEUT# 11.08 X1000 (1.4-6.5); NEUT% 90.9 % (42.2-75.2); PLT 224 X1000 (130-400); RDW 14.9 % (11.5-14.5)
[2018-08-03] MEDS: SYNTHROID PO SCH (06:10)
[2018-08-03] MEDS: MAXIPIME 1 GM in NS 50 ML IV SCH ×3 (06:10→23:46)
[2018-08-03 06:17] LABS: AGAP 10; BUN 13 mg/dL (8-22); CALCIUM 8.2 mg/dL (8.8-10.2); CHLORIDE 92 mmol/L (98-107); COSMO 271; CREATININE 0.6 mg/dL (0.5-0.9); ESTIMATED GFR > 60; GLUCOSE 107 mg/dL (70-104); MAGNESIUM 1.8 mg/dL (1.5-2.7); POTASSIUM 3.5 mmol/L (3.5-5.1); SODIUM 135 mmol/L (136-145); TCO2 33 mmol/L (25-35)
--- NOTE | 2018-08-03 07:24 | INFECTIOUS DISEASE PROGRESS NO ---
DATE: 08/03/2018 PRESENT ILLNESS: The patient has bilateral infiltrates. The exact etiology of these infiltrates is uncertain to me. The patient's procalcitonin of 0.23 indicates that the patient is unlikely to have pneumonia. The patient also has a decrease in IgG at 609. This is clinically not significant and does not merit IVIG therapy. MEDICATIONS: This is the third day of treatment with Zyvox and cefepime. PHYSICAL EXAMINATION: Vital Signs: Temperature is 99 degrees, pulse 117, respirations 22, blood pressure 125/68. General: This is an ill-appearing, elderly female. She is wearing a BiPAP mask and still seems somewhat dyspneic. Head, Eyes, Ears, Nose, and Throat: She can hear my spoken words and see near objects. I did not see any drainage coming from her nose or ears. Neck: She does not have any neck pain when she moves her head. Lungs: Clear to auscultation. Cardiovascular: Heart rate is regular. Abdomen: Soft and nontender. Neurologic: The patient remains alert. She can move her extremities. Thorax: The patient has a pacemaker in place on the left side. The site is not erythematous or swollen. Neurologic: The patient is alert. She can move her extremities. There is no tremor. LAB AND X-RAY: There is no new x-ray for today. The CBC result is still pending. Blood gases show a pH of 7.51, a PO2 of 67, and a pCO2 of 49. Creatinine is 0.7. GFR is greater than 60. ASSESSMENT AND PLAN: Patient has pulmonary infiltrates. The exact etiology of the infiltrates is uncertain to me now. I am going to continue her current antibiotics. In my opinion, she does not require IVIG because her IgG level is 609. Again, I do not think this merits giving the patient IVIG. I think it would be very helpful if a bronchoscopy with transbronchial biopsy could be done but with the patient on a BiPAP mask, it may be dangerous to do. I will leave that decision to Dr. Jerez. COMORBIDITIES: Include she is elderly and in the past, she has had oral cancer and a stroke. cc: Dale Damon MD
--- NOTE | 2018-08-03 07:30 | Diag Imaging Result Doc PS360 ---
EXAM: CHEST-1 VIEW INDICATION: SOB TECHNIQUE: One view COMPARISON: 08/02/2018 FINDINGS: Extensive dense infiltrates bilaterally are approximately stable. There are stable small effusions. No definite new consolidation is identified. Cardiac silhouette is stable. IMPRESSION: Essentially stable chest. Electronically signed by Andre Aquino 08/03/2018 7:27 AM
--- NOTE | 2018-08-03 08:32 | PROGRESS NOTE ---
DATE: 08/03/2018 SUBJECTIVE: Patient continues to use a BiPAP machine. She reports feeling better. Denies any fever or chills. No acute issues noted as per nursing staff. OBJECTIVE: Vital Signs: Temperature 99.4 degrees, heart rate 66, respiratory rate 19, blood pressure 125/44, O2 saturation 98% on BiPAP. General Examination: This is a chronically ill- appearing and malnourished, 88-year-old, female lying in bed, in no acute distress. HEENT: Head is normocephalic and atraumatic. Mucous membranes are dry. Patient is using a BiPAP mask. Neck: No JVD noted. No carotid bruits. No lymphadenopathy. No thyromegaly. Cardiovascular Examination: S1 and S2 heard. No murmurs, gallops, or rubs. Regular rate and rhythm. Respiratory Examination: Coarse breath sounds noted in both pulmonary guidry, mostly noted in both bases, along with some rales. The patient is not using any accessory muscles or having work of breathing. Abdomen: Soft. Nontender to palpation, nondistended. Bowel sounds present. No organomegaly. Extremities: Mild lower extremity edema but no clubbing or cyanosis noted. In the left leg, she has an erythema due to previous cellulitis. Neurological Examination: The patient is alert and oriented x3. She reports feeling very weak but she moves 4 extremities spontaneously. Laboratory Data: White cell count 12.2, hemoglobin 8.6, hematocrit 27.3, platelets 224,000. ABG shows pH 7.51, pCO2 of 49, with pCO2 of 67. That sample was taken on BiPAP. BMP shows creatinine 0.6, with sodium 135, chloride 92. ASSESSMENT/PLAN: 1. Acute hypoxemic and hypercapnic respiratory failure secondary to bilateral pneumonia. Clinically, this patient is stable. The patient is not on any breathing treatments. We are going to start those. The patient also is on Zyvox and cefepime as per infectious disease recommendation. We will continue with the same management. 2. Sepsis secondary to bilateral multifocal pneumonia. There is an x-ray from today which showed essentially stable chest but on the findings, they report extensive dense infiltrates bilaterally that are stable. There is also a small effusion but no new consolidation is identified. In any case, we will continue with antibiotics as we mentioned above, and Lasix as well. Pulmonary is following this patient. We will follow recommendations. 3. Hypothyroidism. We will continue home doses of Synthroid. 4. Left lower extremity edema. Deep venous thrombosis has been already ruled out. The patient was also treated for cellulitis. We will continue with the same management. 5. History of atrial fibrillation with rapid ventricular rate, status post pacemaker. Patient continues to be on Xarelto. The heart rate is well controlled. 6. Anemia of chronic disease. We will continue to monitor CBC. 7. Hypokalemia, completely resolved. 8. General weakness and physical deconditioning. Physical therapy has been consulted. 9. Disposition. The patient's prognosis is guarded because of her age, comorbidities, and current high oxygen needs. At this point, we will continue with the current management. The patient is Do Not Resuscitate level 1. cc: Montez Munoz MD
[2018-08-03] MEDS: DUONEB (A & A) INH SCH ×3 (08:56→21:20)
[2018-08-03] MEDS: CORDARONE PO SCH ×2 (09:01→21:00)
[2018-08-03] MEDS: FERGON PO SCH (09:01)
[2018-08-03] MEDS: FOLIC ACID PO SCH (09:01)
[2018-08-03] MEDS: MIRALAX PO SCH ×2 (09:02→21:01)
[2018-08-03] MEDS: OCUVITE LUTEIN & ZEAXANTHIN PO SCH (09:02)
[2018-08-03] MEDS: KLOR-CON PO SCH (09:02)
[2018-08-03] MEDS: LOPRESSOR PO SCH ×2 (09:02→21:01)
[2018-08-03] MEDS: LASIX IV SCH (09:02)
[2018-08-03] MEDS: SANTYL OINT TOP SCH (09:03)
[2018-08-03] MEDS: ZYVOX PO SCH ×2 (09:03→21:01)
[2018-08-03] MEDS: XARELTO PO SCH (16:16)
[2018-08-04] MEDS: DUONEB (A & A) INH SCH ×4 (03:20→21:15)
[2018-08-04 04:32] LABS: ALLEN TEST YES; BE 10.7 mmoll (-3.0-3.0); BLOOD TYPE ARTERIAL; HCO3-(ACT) 33.1 mmoll (20.0-26.0); METHB 0.9 % (0.0-1.5); O2HB 90.3 % (95.0-99.0); PCO2(98.6) 48 mmHg (35-45); PO2(98.6) 59 mmHg (60-100); SAMPLE BLOOD; SAO2 92.8 % (95.0-100.0); THB 12.6 g/dL (11.5-17.4); pH(98.6) 7.48 (7.35-7.45)
[2018-08-04 04:33] LABS: MODALITY HIGH FLOW NASAL CAN
[2018-08-04] MEDS: MAXIPIME 1 GM in NS 50 ML IV SCH ×4 (05:13→22:43)
[2018-08-04] MEDS: SYNTHROID PO SCH ×2 (05:14→06:05)
[2018-08-04 05:48] LABS: BASO# 0.01 X1000 (0.0-0.2); BASO% 0.1 % (0.0-0.8); EOS# 0.18 X1000 (0.0-0.7); EOS% 1.4 % (0.0-10.0); HEMATOCRIT 29.3 % (37.0-47.0); HEMOGLOBIN 9.3 g/dL (12.0-16.0); IMM GRAN# 0.07 X1000 (0.0-0.04); IMM GRAN% 0.6 % (0.0-0.5); LYMPH# 0.67 X1000 (1.2-3.4); LYMPH% 5.3 % (20.5-51.1); MCH 34.3 PG (27-31); MCHC 31.7 g/dL (33-37); MCV 108.1 FL (81-99); MONO# 0.27 X1000 (0.11-0.59); MONO% 2.1 % (1.7-9.3); MPV 8.7 FL (7.4-10.4); NEUT# 11.51 X1000 (1.4-6.5); NEUT% 90.5 % (42.2-75.2); PLT 226 X1000 (130-400); RBC 2.71 XMIL (4.2-5.4); RDW 14.8 % (11.5-14.5); WBC 12.71 X1000 (4.8-10.8)
[2018-08-04 06:09] LABS: AGAP 10; BUN 13 mg/dL (8-22); CHLORIDE 94 mmol/L (98-107); COSMO 272; CREATININE 0.6 mg/dL (0.5-0.9); ESTIMATED GFR > 60; GLUCOSE 103 mg/dL (70-104); POTASSIUM 4.2 mmol/L (3.5-5.1); SODIUM 136 mmol/L (136-145); TCO2 32 mmol/L (25-35)
[2018-08-04 06:33] LABS: EOS 2 % (1-10); LYMPHS 2 % (21-51); MONO 3 % (1-9); SEGS 93 % (42-75)
--- NOTE | 2018-08-04 08:03 | Diag Imaging Result Doc PS360 ---
CHEST-1 VIEW - 08/04/2018 INDICATION: SOB COMPARISON: 08/03/2018 FINDINGS: Stable pacemaker. Stable low lung volumes. Stable dense bilateral interstitial infiltrates. There is increasing density of right perihilar and right midlung consolidation. There are trace pleural effusions. Heart size is normal. IMPRESSION: Increasing density of right perihilar and right midlung consolidation. Electronically signed by Alberto Kaufman 08/04/2018 8:01 AM
[2018-08-04] MEDS: KLOR-CON PO SCH (09:30)
[2018-08-04] MEDS: CORDARONE PO SCH ×2 (09:31→20:30)
[2018-08-04] MEDS: MIRALAX PO SCH ×2 (09:33→20:31)
[2018-08-04] MEDS: LOPRESSOR PO SCH ×2 (09:33→20:30)
[2018-08-04] MEDS: FOLIC ACID PO SCH (09:34)
[2018-08-04] MEDS: ZYVOX PO SCH ×2 (09:35→20:30)
[2018-08-04] MEDS: LASIX IV SCH (09:36)
[2018-08-04] MEDS: SANTYL OINT TOP SCH (09:37)
[2018-08-04] MEDS: OCUVITE LUTEIN & ZEAXANTHIN PO SCH (09:38)
[2018-08-04] MEDS: FERGON PO SCH (09:39)
[2018-08-04] MEDS: MYCOSTATIN SUSP PO SCH ×4 (09:40→20:30)
[2018-08-04] MEDS ORDERED: CALMOSEPTINE OINTMENT TOP PRN (10:07)
--- NOTE | 2018-08-04 12:46 | PROGRESS NOTE ---
DATE: 08/04/2018 SUBJECTIVE: The patient now is using high-flow nasal cannula. She reports feeling better. Yesterday, at night, she was using a nonrebreather mask and her oxygen saturation dropped to 78% so she was placed on BiPAP. OBJECTIVE: Vital Signs: Temperature 98.8 degrees, heart rate 83, respiratory rate 24, blood pressure 159/62, O2 saturation 95% on high-flow nasal cannula. General Examination: This is a chronically ill-appearing and malnourished, 88-year-old, female lying in bed, in no acute distress. HEENT: Head is normocephalic, atraumatic. Mucous membranes dry. Patient is using Optiflow nasal cannula. Neck: No JVD noted. No carotid bruits. No lymphadenopathy. No thyromegaly. Cardiovascular Examination: S1 and S2 heard. No murmurs, gallops, or rubs. Regular rate and rhythm. Respiratory Examination: Coarse breath sounds noted in both pulmonary guidry, mostly noted in both bases, along with some rales, basically unchanged in comparing with yesterday. Patient is not using any accessory muscles or having work of breathing. Abdomen: Soft. Nontender to palpation. Nondistended. Bowel sounds present. No organomegaly. Extremities: Mild lower extremity edema but no clubbing or cyanosis noted. In the left leg, she has erythema due to previous cellulitis. Neurological Examination: The patient is alert and oriented x3. Laboratory Data: White cell count 12.71, hemoglobin 9.3, hematocrit 29.3, platelets 226,000. Normal BMP. ASSESSMENT AND PLAN: 1. Acute hypoxemic, hypercarbic respiratory failure secondary to bilateral pneumonia. Unfortunately, this patient is not improving. The patient is on breathing treatments. The patient is on Zyvox and cefepime as per infectious disease but I do not see this patient going forward. At this point, I think we will continue with the same management but would like to talk with the rest of the family about goals of care. 2. Sepsis secondary to multifocal pneumonia. The x-ray from today showed increasing density of the right perihilar and right mid lung consolidation. In that regard, we will continue with the same management. 3. Hypothyroidism. We will continue home dose of Synthroid. 4. Left lower extremity edema, aware. Deep venous thrombosis has been ruled out already. 5. History of atrial fibrillation with rapid ventricular response, status post pacemaker. The patient continues to be on Xarelto. 6. Hypokalemia, resolved. 7. General weakness and physical deconditioning. Physical therapy has been consulted. 8. Disposition. The prognosis for this patient is guarded because she is not improving as we were expecting. We will continue with the same management for now. Now her code status is Do Not Resuscitate level 1. cc: Montez Munoz MD
--- NOTE | 2018-08-04 13:16 | INFECTIOUS DISEASE PROGRESS NO ---
DATE: 08/04/2018 PRESENT ILLNESS: The patient has bilateral infiltrates. The exact etiology of these infiltrates is still uncertain to me. I think it is possible she has a pneumonia the even though her procalcitonin is 0.23. She does have a slightly low IgG at 609, but clinically I do not think this is significant and does not merit IVIG therapy. The patient has developed oral candidiasis. MEDICATIONS: This is the 4th day of treatment with Zyvox and cefepime. I started nystatin swish and swallow today. PHYSICAL EXAMINATION: Vital Signs: Temperature is 98.7 degrees, pulse 84, respirations 20, blood pressure 159/61. General: This is an ill-appearing, elderly female. She is not wearing her BiPAP mask today. She does seem somewhat dyspneic, however. Head/eyes/ears/nose/throat: She can hear my spoken words and see near objects. She is beginning to have some white patches on her tongue. Cardiovascular: Heart rate is regular. Lungs: Clear to auscultation. Abdomen: Soft and nontender. Neurologic: The patient is alert. She can move her extremities. There is no tremor. Thorax: The patient has a pacemaker in place on the left side. The site is not swollen or tender. Extremities: Both legs are not edematous and they are not erythematous. LAB AND X-RAY: The chest x-ray shows continued dense bilateral infiltrates. [place] [address], hemoglobin 9.3, and platelet count 226,000. Arterial blood gases show a pH of 7.48, a PO2 of 59 and a pCO2 of 48. Creatinine is 0.6. GFR is greater than 60. Procalcitonin is 0.23. Stool for Clostridium difficile toxin and antigen is negative. ASSESSMENT AND PLAN: The patient has pulmonary infiltrates I am treating them as if she does have pneumonia. She also is developing oral candidiasis. My plan is to continue her 2 antibiotics namely cefepime and Zyvox and start the patient on Mycostatin swish and swallow. COMORBIDITIES: She is elderly. She has had oral cancer and stroke. cc: Dale Damon MD [facility]ITALArnav
--- NOTE | 2018-08-04 14:23 | Diag Imaging Result Doc PS360 ---
CT THORAX W/O CONTRAST - 08/04/2018 INDICATION: SOB COMPARISON: Previous chest x-rays FINDINGS: No adenopathy. There is a left-sided pacemaker. There is cardiomegaly. Anemia is present. There is a moderately large hiatal hernia. There is a small left and moderate right pleural effusion. There is moderate dependent atelectasis bilaterally. There is significant interstitial infiltrate throughout the lungs compatible with pulmonary edema. There are dense focal infiltrate in the upper lobes bilaterally. There is severe, dense calcified vascular disease of the aorta and great vessel origins. There is a compression fracture in the upper thoracic spine, at T4. There is about 50% loss of height here. No bony retropulsion. IMPRESSION: 1. Cardiomegaly, pulmonary edema, bilateral pleural effusions. 2. Bilateral upper lobe focal infiltrates which may represent pneumonia as well. 3. Hiatal hernia. This exam was performed using automated exposure control, adjustment of mA or kV according to patient size, and/or use of iterative reconstruction technique Electronically signed by Alberto Kaufman 08/04/2018 2:20 PM
[2018-08-04] MEDS: XARELTO PO SCH (17:08)
[2018-08-05] MEDS: DUONEB (A & A) INH SCH ×4 (02:55→15:22)
[2018-08-05 05:18] LABS: ALLEN TEST YES; BE 10.8 mmoll (-3.0-3.0); BLOOD TYPE ARTERIAL; HCO3-(ACT) 33.4 mmoll (20.0-26.0); METHB 1.1 % (0.0-1.5); O2(CT) 12.9 mL/dL (15.0-23.0); O2HB 96.7 % (95.0-99.0); PCO2(98.6) 49 mmHg (35-45); PO2(98.6) 137 mmHg (60-100); SAMPLE BLOOD; SAO2 98.9 % (95.0-100.0); THB 9.3 g/dL (11.5-17.4); pH(98.6) 7.47 (7.35-7.45)
[2018-08-05 05:20] LABS: MODALITY HIGH FLOW NASAL CAN
[2018-08-05 05:59] LABS: EOS# 0.17 X1000 (0.0-0.7); EOS% 1.7 % (0.0-10.0); HEMATOCRIT 29.2 % (37.0-47.0); HEMOGLOBIN 9.2 g/dL (12.0-16.0); IMM GRAN# 0.04 X1000 (0.0-0.04); IMM GRAN% 0.4 % (0.0-0.5); LYMPH# 0.64 X1000 (1.2-3.4); LYMPH% 6.4 % (20.5-51.1); MCH 34.1 PG (27-31); MCHC 31.5 g/dL (33-37); MCV 108.1 FL (81-99); MONO# 0.33 X1000 (0.11-0.59); MONO% 3.3 % (1.7-9.3); MPV 9.1 FL (7.4-10.4); NEUT# 8.75 X1000 (1.4-6.5); NEUT% 88.2 % (42.2-75.2); PLT 234 X1000 (130-400); RDW 14.8 % (11.5-14.5); WBC 9.93 X1000 (4.8-10.8)
[2018-08-05] MEDS: MAXIPIME 1 GM in NS 50 ML IV SCH ×3 (06:05→22:33)
[2018-08-05] MEDS: SYNTHROID PO SCH (06:05)
[2018-08-05 06:08] LABS: AGAP 9; BUN 16 mg/dL (8-22); CALCIUM 7.9 mg/dL (8.8-10.2); CHLORIDE 96 mmol/L (98-107); COSMO 272; CREATININE 0.5 mg/dL (0.5-0.9); ESTIMATED GFR > 60; GLUCOSE 109 mg/dL (70-104); MAGNESIUM 2.1 mg/dL (1.5-2.7); POTASSIUM 4.4 mmol/L (3.5-5.1); SODIUM 135 mmol/L (136-145); TCO2 30 mmol/L (25-35)
--- NOTE | 2018-08-05 07:19 | INFECTIOUS DISEASE PROGRESS NO ---
DATE: 08/05/2018 PRESENT ILLNESS: The patient has a bilateral upper lobe pneumonia. She also has oral candidiasis. Her IgG level of 609 is not low enough that it is clinically important. It does not require IVIG. MEDICATIONS: This is the 5th day of treatment with Zyvox and cefepime. Yesterday, the patient was started on nystatin swish and swallow. PHYSICAL EXAMINATION: Vital Signs: Temperature is 98.6 degrees, pulse 73, respirations 19, blood pressure 143/68. General: This is an ill-appearing, elderly female. She is in no acute distress. Head, Eyes, Ears, Nose, and Throat: She can hear my spoken words and see near objects. She does not have any white patches on her tongue. Neck: She does not have any neck pain when she moves her head or neck. Lungs: Clear to auscultation. Cardiovascular: Heart rate is regular. Thorax: The patient has a pacemaker. The site is not swollen or tender. Abdomen: Soft and nontender. Extremities: No leg edema. LAB AND X-RAY: CT scan of the chest shows pulmonary edema, bilateral pleural effusions, and bilateral upper lobe infiltrates. Creatinine is 0.5. GFR is greater than 60. Blood gases show a pH of 7.47, a PO2 of 137, and a pCO2 of 49. CBC shows a white count of 9930, hemoglobin 9.2, platelet count 234,000. ASSESSMENT AND PLAN: The patient has pulmonary infiltrates as well as pulmonary venous congestion. She also has oral candidiasis. As mentioned above, her IgG level of 609 is not clinically significant and does not require treatment with IVIG. My plan for the patient's pneumonia is to continue cefepime and Zyvox, and for the patient's oral candidiasis, continue Mycostatin swish and swallow. COMORBIDITIES: The patient is elderly. She also has had oral cancer and a stroke in the past. cc: Dale Damon MD
[2018-08-05 07:26] LABS: ANISOCYTOSIS 1+; BANDS 2 % (0-1); HYPOCHROM 1+; LYMPHS 4 % (21-51); SEGS 92 % (42-75)
--- NOTE | 2018-08-05 07:39 | Diag Imaging Result Doc PS360 ---
CHEST-1 VIEW - 08/05/2018 INDICATION: SOB COMPARISON: 08/04/2018 FINDINGS: Stable pacemaker. Lung volumes are severely low. There is decrease in the size of the focal infiltrate or atelectasis in the right midlung. There is also decrease in the hazy interstitial pulmonary edema in the lung bases. Otherwise stable extensive central, primarily upper lobe interstitial infiltrates. Stable trace pleural effusions. Heart size remains top normal. IMPRESSION: Lower lung volumes. Decrease in the size of the focal infiltrate or atelectasis in the right midlung. Decrease in the pulmonary edema in the lung bases. Electronically signed by Alberto Kaufman 08/05/2018 7:37 AM
[2018-08-05] MEDS: MIRALAX PO SCH ×2 (08:28→20:11)
[2018-08-05] MEDS: ZYVOX PO SCH ×2 (08:30→20:12)
[2018-08-05] MEDS: FOLIC ACID PO SCH (08:30)
[2018-08-05] MEDS: MYCOSTATIN SUSP PO SCH ×4 (08:30→20:12)
[2018-08-05] MEDS: LOPRESSOR PO SCH ×2 (08:30→20:12)
[2018-08-05] MEDS: OCUVITE LUTEIN & ZEAXANTHIN PO SCH (08:30)
[2018-08-05] MEDS: CORDARONE PO SCH ×2 (08:30→20:12)
[2018-08-05] MEDS: KLOR-CON PO SCH (08:30)
[2018-08-05] MEDS: SANTYL OINT TOP SCH (08:31)
[2018-08-05] MEDS: LASIX IV SCH (08:31)
[2018-08-05] MEDS: FERGON PO SCH (08:31)
--- NOTE | 2018-08-05 09:54 | PROGRESS NOTE ---
DATE: 08/05/2018 SUBJECTIVE: Patient reports still feeling short of breath. Now using high-flow nasal cannula. She continues to require high amount of oxygen. OBJECTIVE: Vital Signs: Temperature 98.9 degrees, heart rate 73, respiratory rate 18, blood pressure 147/55, O2 saturation 100% on high-flow nasal cannula at 50 L per minute. General Examination: This is a chronically ill-appearing and malnourished, 88-year-old, female lying in bed, in no acute distress. HEENT: Head is normocephalic and atraumatic. Mucous membranes are dry. Patient is using Optiflow nasal cannula. Neck: No JVD noted. No carotid bruits. No lymphadenopathy. Cardiovascular Examination: S1 and S2 heard. No murmurs, gallops, or rubs. Regular rate and rhythm. Respiratory Examination: Coarse breath sounds and rhonchi noted in both pulmonary guidry, mostly noted in both bases, along with some crackles as well. Basically unchanged during the last 3 days. The patient is not using any accessory muscles or having work of breathing. Abdomen: Soft, nontender to palpation, nondistended. Bowel sounds present. No organomegaly. Extremities: Mild bilateral extremity edema but no clubbing or cyanosis noted. In the left leg, she has mild erythema due to previous cellulitis. Neurological Examination: The patient is alert and oriented x3. She is slow to follow commands. Laboratory Data: White cell count 9.93, hemoglobin 9.2, hematocrit 29.2, platelets 234,000. ABG shows pH 7.47, with pCO2 49, PO2 137. That was on high-flow nasal cannula. BMP reveals sodium 135, normal creatinine, glucose 109. ProBNP is 8387. ASSESSMENT AND PLAN: 1. Acute hypoxemic, hypercarbic respiratory failure secondary to bilateral pneumonia. Unfortunately, this patient is not improving as we were expecting. She continues to be on breathing treatment, DuoNeb. Patient is on Zyvox and cefepime day #5 for both medications. Infectious disease, Dr. Damon, is directing antibiotics. Unfortunately, as mentioned before, I do not see her going forward. Palliative care team has been involved to establish goals of care. 2. Sepsis secondary to multifocal pneumonia. The x-ray from this morning showed a decrease in the size of the focal infiltrates or atelectasis in the right mid lung and a decrease in the pulmonary edema in the lung bases. We will continue to monitor this patient closely. 3. Hypothyroidism. We will continue home dose of Synthroid. 4. Left lower extremity edema. Deep venous thrombosis has been ruled out already. 5. History of atrial fibrillation with rapid ventricular response, status post pacemaker. The patient is on Xarelto. Heart rate is under control. We will continue with the same medications. 6. General weakness and physical deconditioning. Physical therapy has been consulted but not able to work with her completely because of her oxygen needs. She wanted to go to rehab but with this high amount of oxygen, I do not think she is a candidate for that. In any case, we will continue to monitor this patient closely. We know that this patient is Do Not Resuscitate level 1. We will continue with current management as of now. cc: Montez Munoz MD MTDD
[2018-08-05] MEDS: XARELTO PO SCH (16:27)
[2018-08-06] MEDS: DUONEB (A & A) INH SCH ×4 (03:35→19:53)
[2018-08-06 05:26] LABS: BASO# 0.01 X1000 (0.0-0.2); BASO% 0.1 % (0.0-0.8); EOS# 0.19 X1000 (0.0-0.7); EOS% 2.4 % (0.0-10.0); HEMATOCRIT 29.1 % (37.0-47.0); HEMOGLOBIN 9.1 g/dL (12.0-16.0); IMM GRAN# 0.04 X1000 (0.0-0.04); IMM GRAN% 0.5 % (0.0-0.5); LYMPH# 0.58 X1000 (1.2-3.4); LYMPH% 7.4 % (20.5-51.1); MCH 33.8 PG (27-31); MCHC 31.3 g/dL (33-37); MCV 108.2 FL (81-99); MONO# 0.33 X1000 (0.11-0.59); MONO% 4.2 % (1.7-9.3); MPV 8.9 FL (7.4-10.4); NEUT# 6.74 X1000 (1.4-6.5); NEUT% 85.4 % (42.2-75.2); PLT 217 X1000 (130-400); RBC 2.69 XMIL (4.2-5.4); RDW 14.6 % (11.5-14.5); WBC 7.89 X1000 (4.8-10.8)
[2018-08-06 05:45] LABS: ALLEN TEST YES; BE 10.8 mmoll (-3.0-3.0); BLOOD TYPE ARTERIAL; HCO3-(ACT) 33.3 mmoll (20.0-26.0); O2(CT) 12.5 mL/dL (15.0-23.0); O2HB 95.8 % (95.0-99.0); PCO2(98.6) 49 mmHg (35-45); PO2(98.6) 85 mmHg (60-100); SAMPLE BLOOD; SAO2 98.2 % (95.0-100.0); THB 9.2 g/dL (11.5-17.4); pH(98.6) 7.47 (7.35-7.45)
[2018-08-06 05:46] LABS: MODALITY HIGH FLOW NASAL CAN
[2018-08-06 05:52] LABS: AGAP 7; BUN 17 mg/dL (8-22); CALCIUM 8.2 mg/dL (8.8-10.2); CHLORIDE 94 mmol/L (98-107); COSMO 268; CREATININE 0.6 mg/dL (0.5-0.9); ESTIMATED GFR > 60; GLUCOSE 107 mg/dL (70-104); POTASSIUM 4.7 mmol/L (3.5-5.1); SODIUM 133 mmol/L (136-145); TCO2 32 mmol/L (25-35)
[2018-08-06] MEDS: MAXIPIME 1 GM in NS 50 ML IV SCH ×3 (06:08→22:08)
[2018-08-06] MEDS: SYNTHROID PO SCH (06:08)
--- NOTE | 2018-08-06 07:06 | INFECTIOUS DISEASE PROGRESS NO ---
DATE: 08/06/2018 PRESENT ILLNESS: The patient has a bilateral upper lobe pneumonia, oral candidiasis, and a minimally decreased IgG level at 609. MEDICATIONS: This is the sixth day of treatment with cefepime and Zyvox, and the second day of treatment with Mycostatin swish and swallow. As mentioned yesterday, the patient does not require IVIG because her IgG level is minimally decreased at 609. PHYSICAL EXAMINATION: Vital Signs: Temperature is 98.7 degrees, pulse 69, respirations 18, blood pressure 141/48. General: This is an ill-appearing, elderly female. She is in no acute distress. Head, Eyes, Ears, Nose, and Throat: She can hear my spoken words and see near objects. The white patches that she had in her mouth are less today than they were yesterday. Neck: No neck pain with movement of her neck. Lungs: Clear to auscultation. Cardiovascular: Heart rate is regular. Thorax: The patient has a pacemaker present on the left side. The site is not erythematous or swollen. Abdomen: Soft and nontender. Extremities: No leg edema and no erythema. LAB AND X-RAY: The patient's CBC shows a white count of 7890, hemoglobin 9.1, platelet count 217,000. Blood gases show a pH of 7.47, a PO2 of 85, and a pCO2 of 49. Creatinine is 0.6. GFR is greater than 60. Chest x-ray shows improvement in the upper lobe infiltrates and the patient's pulmonary edema. ASSESSMENT AND PLAN: The patient has pneumonia and oral candidiasis, both of which are getting better. My plan is to continue cefepime and Zyvox for the pneumonia, and Mycostatin swish and swallow for the oral candidiasis. As regarding the minimally low IgG level, this does not merit giving the patient IVIG. COMORBIDITIES: She is elderly. She has had oral cancer and a stroke in the past. cc: Dale Damon MD
--- NOTE | 2018-08-06 07:08 | Diag Imaging Result Doc PS360 ---
EXAM: CHEST-1 VIEW 08/06/2018 HISTORY: SOB TECHNIQUE: AP portable at 0530 COMMENT: There is retrocardiac opacity on the left and ill-defined opacity in both upper lobes. There is blunting of the right costophrenic angle. Compared to the previous study of 08/05/2018, there is slightly less platelike opacity in the right lung. IMPRESSION: Bilateral pneumonia slightly improved on the right since the previous study. Electronically signed by Marko Clancy 08/06/2018 7:06 AM
[2018-08-06] MEDS: MIRALAX PO SCH ×2 (08:43→20:01)
[2018-08-06] MEDS: KLOR-CON PO SCH (08:43)
[2018-08-06] MEDS: CORDARONE PO SCH ×2 (08:43→20:00)
[2018-08-06] MEDS: FOLIC ACID PO SCH (08:43)
[2018-08-06] MEDS: ZYVOX PO SCH ×2 (08:43→20:00)
[2018-08-06] MEDS: LASIX IV SCH (08:44)
[2018-08-06] MEDS: MYCOSTATIN SUSP PO SCH ×4 (08:44→20:01)
[2018-08-06] MEDS: LOPRESSOR PO SCH ×2 (08:46→20:00)
[2018-08-06] MEDS: OCUVITE LUTEIN & ZEAXANTHIN PO SCH (08:47)
[2018-08-06] MEDS: FERGON PO SCH (08:47)
[2018-08-06] MEDS: SANTYL OINT TOP SCH (08:53)
--- NOTE | 2018-08-06 09:17 | PROGRESS NOTE ---
DATE: 08/06/2018 INTERVAL HISTORY: No acute events overnight. The patient was saturating 95% on 85% high-flow nasal cannula. SUBJECTIVE: She is alert. She is complaining of some mild shortness of breath. She states that in the morning time, she did have chest pain which was affecting the center of her chest at rest and it was sharp. It got better without any intervention, on its own once she started taking deep breaths. VITALS: Temperature of 98.3 degrees, pulse 72, respiratory rate 26, blood pressure 137/49, saturating 100% on 85% high-flow nasal cannula. PHYSICAL EXAMINATION: She appears mildly short of breath, though not in any acute distress. She does have to gasp while completing her entire sentence. Input and output suggest -2 L. Since admission, she is -14 L. General: Oral cavity is moist with some oral candidiasis, improved. Decreased air entry with inspiratory crackles in the left infrascapular region. She does have wide splitting of second heart sound. S1 is normal. No murmur, rub, or gallop. Abdomen: Soft, nontender. Active bowel sounds. No lower extremity edema. She does have a Partida catheter. LABS: I have ordered a repeat TSH to be done tomorrow. Her CBC suggests macrocytic anemia with stable hemoglobin, normal platelet count. PO2 of 85 on 60% FiO2. Acceptable range of electrolytes. No positive microbiological data. IMAGING: Chest x-ray performed today does suggest bilateral pneumonia which is slightly improved on the right since previous study. ASSESSMENT AND PLAN: 1. Acute hypoxic respiratory failure and sepsis due to bilateral pneumonia. Continue oxygenation through high-flow nasal cannula and wean down as tolerated; continue DuoNeb; intravenous cefepime and Zyvox. Today is day 6 as per infectious disease recommendation. I will decrease Lasix dose to oral since she has been significantly negative balance since admission. I will also start the patient on incentive spirometer. Pulmonology on board as well. 2. Suspected myxedema on presentation. Continue current dose of Synthroid and follow up with TSH tomorrow and further adjust dose according to her response. 3. History of atrial fibrillation with rapid ventricular response, status post pacemaker. Continue metoprolol and Xarelto. 4. History of chronic anemia with folic acid deficiency. Continue folic acid and ferrous gluconate. 5. Disposition. The patient remains inside the hospital in [place] for close monitoring of her respiratory status. Her code status is a Do Not Resuscitate level 1. The palliative care team has also been consulted. I will discuss with the social work team if she would be a good candidate for long-term acute care in the future. I will discuss with the social work team if she could qualify for long-term acute care depending on her course. Plan of care discussed with the patient. All of her questions have been answered. cc: Dharmesh Jane MD MTDD
[2018-08-06] MEDS: XARELTO PO SCH (16:32)
[2018-08-07] MEDS: DUONEB (A & A) INH SCH ×4 (03:18→21:10)
[2018-08-07 04:09] LABS: BLOOD TYPE ARTERIAL; SAMPLE BLOOD
[2018-08-07 04:10] LABS: ALLEN TEST YES; BE 10.4 mmoll (-3.0-3.0); METHB 0.9 % (0.0-1.5); O2HB 95.1 % (95.0-99.0); PCO2(98.6) 46 mmHg (35-45); PO2(98.6) 80 mmHg (60-100); SAO2 97.7 % (95.0-100.0); THB 12.7 g/dL (11.5-17.4); pH(98.6) 7.49 (7.35-7.45)
[2018-08-07 04:11] LABS: MODALITY HIGH FLOW NASAL CAN
[2018-08-07 05:53] LABS: BASO# 0.01 X1000 (0.0-0.2); BASO% 0.1 % (0.0-0.8); EOS# 0.15 X1000 (0.0-0.7); HEMATOCRIT 27.4 % (37.0-47.0); HEMOGLOBIN 8.7 g/dL (12.0-16.0); IMM GRAN# 0.04 X1000 (0.0-0.04); IMM GRAN% 0.5 % (0.0-0.5); LYMPH# 0.71 X1000 (1.2-3.4); LYMPH% 9.7 % (20.5-51.1); MCH 34.3 PG (27-31); MCHC 31.8 g/dL (33-37); MCV 107.9 FL (81-99); MONO# 0.31 X1000 (0.11-0.59); MONO% 4.2 % (1.7-9.3); MPV 9.1 FL (7.4-10.4); NEUT# 6.12 X1000 (1.4-6.5); NEUT% 83.5 % (42.2-75.2); PLT 205 X1000 (130-400); RBC 2.54 XMIL (4.2-5.4); RDW 14.5 % (11.5-14.5); WBC 7.34 X1000 (4.8-10.8)
[2018-08-07 06:03] LABS: AGAP 7; BUN 16 mg/dL (8-22); CALCIUM 8.1 mg/dL (8.8-10.2); CHLORIDE 95 mmol/L (98-107); COSMO 270; CREATININE 0.6 mg/dL (0.5-0.9); ESTIMATED GFR > 60; GLUCOSE 102 mg/dL (70-104); POTASSIUM 4.5 mmol/L (3.5-5.1); SODIUM 134 mmol/L (136-145); TCO2 32 mmol/L (25-35)
[2018-08-07] MEDS: MAXIPIME 1 GM in NS 50 ML IV SCH ×3 (06:26→23:00)
[2018-08-07] MEDS: SYNTHROID PO SCH (06:26)
--- NOTE | 2018-08-07 06:44 | Diag Imaging Result Doc PS360 ---
EXAM: CHEST-1 VIEW HISTORY: SOB TECHNIQUE: Portable chest single view COMPARISON: 08/06/2018 FINDINGS: Poor inspiratory effort. No cardiomegaly. There is a left small effusion. There are infiltrates throughout the left lung and in the mid right lung. These are slightly less pronounced than on the prior study. There is a left-sided pacemaker. Trace right pleural fluid. IMPRESSION: Slight interval improvement. Electronically signed by Freddy Rodriguez 08/07/2018 6:41 AM
[2018-08-07] MEDS: FOLIC ACID PO SCH (08:19)
[2018-08-07] MEDS: FERGON PO SCH (08:19)
[2018-08-07] MEDS: CORDARONE PO SCH ×2 (08:19→20:54)
[2018-08-07] MEDS: MIRALAX PO SCH ×2 (08:20→20:55)
[2018-08-07] MEDS: LOPRESSOR PO SCH ×2 (08:20→20:54)
[2018-08-07] MEDS: SANTYL OINT TOP SCH (08:21)
[2018-08-07] MEDS: MYCOSTATIN SUSP PO SCH ×4 (08:21→20:56)
[2018-08-07] MEDS: OCUVITE LUTEIN & ZEAXANTHIN PO SCH (08:21)
[2018-08-07] MEDS: ZYVOX PO SCH ×2 (08:22→20:55)
[2018-08-07] MEDS ORDERED: LASIX PO SCH (09:00)
--- NOTE | 2018-08-07 12:02 | PROGRESS NOTE ---
DATE: 08/07/2018 INTERVAL HISTORY: No acute overnight events. I discussed with the nursing team over decreasing FiO2 on high-flow nasal cannula. Her TSH is coming down for which I have decreased her levothyroxine dose. SUBJECTIVE: The patient has been complaining of intermittent chest pain which happens without any physical exertion, located in the center of the chest, sometimes sharp, sometimes burning in nature. Currently, she is denying chest pain. She states her shortness of breath is pretty much the same as it was before. We discussed about physical exam findings, and I answered all of her questions. I encouraged her to use incentive spirometer. VITALS: Patient has been afebrile with temperature of 97.9 degrees, pulse 68, respiratory rate 22, blood pressure 138/45 and saturating 99% on high-flow nasal cannula at 85% FiO2. I discussed with the nursing team about decreasing the FiO2. Input and output: She is -2 L so far. Since admission, she is -16 L. PHYSICAL EXAMINATION: She does not appear in any acute distress except mild shortness of breath. She does have difficulty completing her sentence because of shortness of breath. Oral cavity is moist with oral candidiasis which is improved. Air entry adequate on right hemithorax. She does have decreased air entry with inspiratory crackles on left infrascapular region. She has a wide splitting of second heart sound.Heart: S1 is normal. No murmur, rub, or gallop. Abdomen: Soft. Nontender. Active bowel sounds. Extremities: No lower extremity edema. : She has a Partida catheter. LABORATORY: Suggestive of no leukocytosis, stable anemia, normal platelet count. ABG suggestive of PO2 of 80 on high-flow nasal cannula. She has normal kidney function. Her TSH is 4.8. MICROBIOLOGY: No data. IMAGING: Chest x-ray suggests mild interval improvement. ASSESSMENT AND PLAN: 1. Acute hypoxic respiratory failure and sepsis due to bilateral pneumonia. Continue oxygenation through high-flow nasal cannula. I discussed about decreasing FiO2 keeping the high-flow as tolerated. Continue DuoNeb's, intravenous cefepime and intravenous linezolid as per ID recommendation. Continue p.o. Lasix at current dose and incentive spirometry. 2. Suspected myxedema on presentation. Continue Synthroid. I would decrease the dose as her TSH is coming down, and depending on her weight she may actually need even further lower doses. I will keep a close eye over her serial TSH and adjust the dose accordingly. She also has history of atrial fibrillation. 3. Atrial fibrillation with RVR, status post pacemaker. Continue metoprolol and Xarelto. 4. Chronic anemia with folic acid deficiency currently stable. Continue folic acid and ferrous gluconate. 5. Disposition: The patient's condition remains tenuous with high need of oxygen. I will continue to monitor patient in [facility]. I informed the patient's daughter about her course, and answered all of her questions. I also discussed with the patient and social work professor team about need for LTAC, and they would work on it. Plan of care discussed with the patient, and all of her questions have been answered. I will get EKG as she was complaining of chest pain. Depending on that, I will consider getting troponin's. cc: Dharmesh Jane MD
--- NOTE | 2018-08-07 12:29 | INFECTIOUS DISEASE PROGRESS NO ---
DATE: 08/07/2018 PRESENT ILLNESS: The patient has a bilateral pneumonia and oral candidiasis. Also, her IgG level is minimally decreased at 609. MEDICATIONS: This is the 7th day of treatment with cefepime and Zyvox and the third day of treatment with Mycostatin. Because the patient's IgG level is only minimally decreased, I do not think she is a candidate for IVIG. PHYSICAL EXAMINATION: Vital Signs: Temperature is 98.1 degrees, pulse 67, respirations 21, blood pressure 138/47. General: This is an ill-appearing elderly female. She is in no acute distress. Head/eyes/ears/nose/throat: She can hear my spoken words and see near objects. I do not see any white patches in her mouth today. Neck: She does not have any pain in her neck when she moves her head or neck. Lungs: Clear to auscultation. Cardiovascular: Heart rate is regular. Thorax: The patient has a pacemaker present on the left side. The site is not erythematous or swollen. Abdomen: Soft and nontender. Extremities: Legs, no edema or erythema. LAB AND X-RAY: Chest x-ray shows decrease in the patient's bilateral infiltrates. Her creatinine is 0.6, GFR is greater than 60. Blood gases show a pH of 7.49, a PO2 of 80 and a pCO2 of 46. ASSESSMENT AND PLAN: The patient has pneumonia and oral candidiasis. I plan to continue the current antimicrobial agents for them including Zyvox, cefepime for the pneumonia and Mycostatin swish and swallow for the oral candidiasis. As mentioned earlier, the patient does not require IVIG infusion because her IgG level is only minimally decreased. COMORBIDITIES: The patient is elderly. She has history of oral cancer and stroke. cc: Dale Damon MD
--- NOTE | 2018-08-07 13:41 | EKG Report ---
Test Performed on : 08/07/2018 11:26:46 AM Test Reason : Chest pain Blood Pressure : / mmHG Vent. Rate : 066 BPM Atrial Rate : 066 BPM P-R Int : 200 ms QRS Dur : 082 ms QT Int : 466 ms P-R-T Axes : 013 -12 068 degrees QTc Int : 488 ms Normal sinus rhythm. ST & T wave abnormality, consider anterior ischemia Prolonged QT Abnormal ECG When compared with ECG of 27-JUL-2018 10:35, Left bundle branch block is no longer present Confirmed by Adolfo SERVIN, Anton De León ([id number]) on 08/11/2018 7:26:43 PM
--- NOTE | 2018-08-07 15:53 | ED EKG INTERP ---
This chart was entered by Ra uYsuf Scribe, acting as scribe for Gunnar Matos MD. EKG Interpretation - EKG Time of EKG reading by physician:: 07:48 EKG Read and Signed by:: Gunnar Matos EKG Interpretation (*Must complete 3 of following elements*): Abnormal Rate: 60 Rhythm: Sinus rhythm with AV dissociation and wide QRS rhythm Ailey: left QRS: other (Wide QRS rhythm) NE Interval: normal ST Wave: normal Comments: Abnormal ECG Attestation - Physician/ ANGELITO Attestation The physician spent face to face time with patient:: Yes Advanced Practice Provider documentation review:: Supervising physician onsite and consulted in the evaluation and care of this patient. The physician did have a face to face encounter with the patient. This chart was documented by the indicated scribe, (Ra Yusuf Scribe) and accurately reflects the services I performed and decisions made by me, Gunnar Matos MD, as attested by the provider's signature.
[2018-08-07] MEDS: XARELTO PO SCH (17:26)
[2018-08-08] MEDS: DUONEB (A & A) INH SCH ×4 (03:10→21:02)
[2018-08-08 03:45] LABS: ALLEN TEST YES; BE 9.3 mmoll (-3.0-3.0); BLOOD TYPE ARTERIAL; HCO3-(ACT) 32.2 mmoll (20.0-26.0); METHB 0.7 % (0.0-1.5); MODALITY CANNULA; O2(CT) 12.2 mL/dL (15.0-23.0); O2HB 95.6 % (95.0-99.0); PO2(98.6) 84 mmHg (60-100); SAMPLE BLOOD; SAO2 98.3 % (95.0-100.0); pH(98.6) 7.44 (7.35-7.45)
[2018-08-08 03:48] LABS: PCO2(98.6) 51 mmHg (35-45)
[2018-08-08] MEDS: SYNTHROID PO SCH (06:07)
[2018-08-08] MEDS: MAXIPIME 1 GM in NS 50 ML IV SCH ×3 (06:07→22:51)
[2018-08-08 06:34] LABS: BASO# 0.03 X1000 (0.0-0.2); BASO% 0.5 % (0.0-0.8); EOS# 0.14 X1000 (0.0-0.7); EOS% 2.4 % (0.0-10.0); HEMATOCRIT 26.6 % (37.0-47.0); HEMOGLOBIN 8.7 g/dL (12.0-16.0); IMM GRAN# 0.05 X1000 (0.0-0.04); IMM GRAN% 0.8 % (0.0-0.5); LYMPH# 0.73 X1000 (1.2-3.4); LYMPH% 12.4 % (20.5-51.1); MCH 35.4 PG (27-31); MCHC 32.7 g/dL (33-37); MCV 108.1 FL (81-99); MONO% 5.1 % (1.7-9.3); MPV 10.4 FL (7.4-10.4); NEUT# 4.64 X1000 (1.4-6.5); NEUT% 78.8 % (42.2-75.2); PLT 144 X1000 (130-400); RBC 2.46 XMIL (4.2-5.4); RDW 14.3 % (11.5-14.5); WBC 5.89 X1000 (4.8-10.8)
[2018-08-08 06:51] LABS: AGAP 11; BUN 17 mg/dL (8-22); CALCIUM 7.7 mg/dL (8.8-10.2); CHLORIDE 96 mmol/L (98-107); COSMO 268; CREATININE 0.6 mg/dL (0.5-0.9); ESTIMATED GFR > 60; GLUCOSE 96 mg/dL (70-104); SODIUM 133 mmol/L (136-145); TCO2 26 mmol/L (25-35)
--- NOTE | 2018-08-08 07:09 | Diag Imaging Result Doc PS360 ---
EXAM: CHEST-1 VIEW HISTORY: SOB TECHNIQUE: Portable chest single view COMPARISON: 08/07/2018 FINDINGS: Poor inspiratory effort. There are dense infiltrates throughout the right lung with smaller infiltrates throughout the left lung. The infiltrates in the right lung are more pronounced than they were on the prior study. There are small pleural effusions. No cardiomegaly. No change in the left-sided pacemaker. IMPRESSION: Overall interval worsening. Electronically signed by Freddy Rodriguez 08/08/2018 7:07 AM
--- NOTE | 2018-08-08 09:26 | PROGRESS NOTE ---
DATE: 08/08/2018 INTERVAL HISTORY: Her vitals are unremarkable. Chest x-ray shows worsening infiltrate for which I have ordered IV Lasix. SUBJECTIVE: The patient states she is feeling better. Yesterday EKG had normal sinus rhythm. It did have ST-T abnormalities with T-wave inversions affecting V1 to V3. However, her chest pain had resolved without any intervention. She is complaining of occasional cough, but otherwise in general is better. VITAL SIGNS: Temperature 96.7 degrees, pulse 71, respiratory 17, blood pressure 130/53, saturating 99% on high-flow nasal cannula. Oxygen flow rate is documented to be at 25 L. However, FiO2 has not been documented. Input and output suggest negative 2 L yesterday. PHYSICAL EXAMINATION: General: Does not appear in any acute distress. HEENT: Oral cavity is moist. Lungs: Air entry adequate on right hemithorax. She does have some inspiratory crackles bilateral infrascapular region. However clinically the chest examination appears better than before. Cardiovascular: S1, S2 normal. No murmur, rub, or gallop. Abdomen: Soft, nontender. Active bowel sounds. No lower extremity edema. She has a Partida catheter in place. LABS: Suggestive of anemia with hemoglobin of 8.7, platelet of 144,000. She does have a normal pH, pCO2 of 51 and PO2 of 84 on high-flow nasal cannula. She does have a mild degree of hyponatremia/ hypochloremia. Microbiology no new data. IMAGING: Chest x-ray suggests worsening of infiltrate especially in right. ASSESSMENT AND PLAN: 1. Acute hypoxic respiratory failure and sepsis due to bilateral pneumonia. Continue oxygenation through high-flow nasal cannula and decrease FiO2 as tolerated. Continue DuoNeb's, intravenous cefepime and linezolid as per infectious disease recommendation and restart patient on intravenous Lasix with incentive spirometry. 2. Suspected myxedema on presentation. Continue Synthroid and adjust the dose according to future TSH level. 3. Chest pain: EKG had T wave inversions in V1-V3. Repeat EKG has intraventricular conduction delay with T wave inversions in inferior leads. Troponins are negative. This could be demand supply mismatch due to severe hypoxia. I would consider cardiology opinion. 3. Atrial fibrillation with rapid ventricular response, status post pacemaker. Continue metoprolol and Xarelto. 4. Chronic iron and folic acid deficiency anemia. Continue iron and folic acid supplement. DISPOSITION: The patient's condition remains guarded considering her high oxygen requirement, recurrent pulmonary edema and her age and diastolic congestive heart failure. My plan is to continue to monitor in [facility] and find an LTAC facility for her. Plan of care discussed with her. All of her questions have been answered. cc: Dharmesh Jane MD MTDD
[2018-08-08] MEDS: CORDARONE PO SCH (09:48)
[2018-08-08] MEDS: FERGON PO SCH (09:48)
[2018-08-08] MEDS: FOLIC ACID PO SCH (09:48)
[2018-08-08] MEDS: LASIX IV SCH ×3 (09:48→20:36)
[2018-08-08] MEDS: MIRALAX PO SCH ×2 (09:49→20:37)
[2018-08-08] MEDS: MYCOSTATIN SUSP PO SCH ×4 (09:49→20:37)
[2018-08-08] MEDS: LOPRESSOR PO SCH ×2 (09:49→20:37)
[2018-08-08] MEDS: OCUVITE LUTEIN & ZEAXANTHIN PO SCH (09:50)
[2018-08-08] MEDS: ZYVOX PO SCH ×2 (09:50→20:37)
[2018-08-08] MEDS: SANTYL OINT TOP SCH (09:50)
--- NOTE | 2018-08-08 18:13 | CARDIOLOGY CONSULTATION ---
DATE: 08/08/2018 INDICATION FOR CONSULTATION: Chest psin. HISTORY OF PRESENT ILLNESS: Ms. Becker is an 88-year-old female who has been admitted to the hospital since the 26 of July. She had a apparent lethargy and a fall. This subsequently resulted in the diagnosis of what appears to be a possible urinary tract infection as well as episodes of atrial fibrillation and hypoxic respiratory failure thought to be due to an pneumonia. Yesterday the patient had some bouts of chest discomfort that occurred at rest, lasted for around 20 minutes and she described as a pressure in her mid chest with no other associated symptoms. The patient has had these previously. She previously followed with a track rider in 10 is the most recently seeing Dr. Savage July 23. We do not have any previous records currently to review from her [place] track rider. She had a peripheral intervention in February. I am aware if she has had previous coronary interventions or coronary arteriograms. PAST MEDICAL HISTORY: 1. Apparently significant for CVA. 2. Paroxysmal atrial fib maintained on Xarelto and amiodarone. 3. Hypertension. 4. 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 5. Gastroesophageal reflux disease. 6. Pacemaker implantation performed in [place]. Currently, I am unclear of the exact indication for that. 7. Hypertension. 8. Hyperlipidemia. 9. Peripheral arterial disease with previous angioplasty performed by Dr. Berumen earlier this year number. 10. Chronic debility. It sounds like she is in a wheelchair primarily. SOCIAL HISTORY: She lives at the [facility]. No current tobacco use. FAMILY HISTORY: Significant for hypertension. REVIEW OF SYSTEMS: A 10 system review of systems is negative except for those things mentioned in HPI. PHYSICAL EXAMINATION: She is afebrile, heart rate 65, blood pressure 126/44.General: She is in no acute distress. She is thin, somewhat cachectic elderly appearing white female. HEENT: Oropharynx moist. Poor dentition. Eye examination is pink conjunctivae. White sclerae. Neck: Examination shows no obvious thyromegaly or thyroid tenderness. Cardiovascular: She sounds to be in a regular rate and rhythm. I do not hear any obvious murmurs. She has no S3. She has no lower extremity edema. Chest: Clear bilaterally. She has no increased work of breathing. Abdomen: Soft, nontender, nondistended. She has no obvious organomegaly. Skin Exam: Warm and dry throughout without any rashes. Neurological: She is moving all extremities well. She has no lateralizing deficits. PERTINENT DATA: Her most recent EKG was performed yesterday at 11:26 showing sinus rhythm. Evidence for a large T-wave inversions in the anterior septal leads concerning for possible ischemic changes. No ST-segment deviations. No signs of previous infarct. Her most recent EKG in the office to compare that to shows initial being an AV paced rhythm. Subsequently without the magnet she appeared to have an atrial paced rhythm with what appears to be a left bundle branch block. These were reviewed and interpreted by me. Her chest x-ray demonstrates a poor inspiratory effort. Dense infiltrates throughout the right lung with smaller infiltrates throughout the left lung. Infiltrates in the right lung more pronounced than previous. Small pleural effusions. Her laboratory data demonstrates a white count of 5.8, hematocrit 26. This is down from 31 on presentation. Her platelet count is 144,000. Her sodium is 133, potassium is 5, BUN 17, creatinine 0.6 cardiac enzymes are negative. ASSESSMENT: Ms. Becker is an 88-year-old female with a history of peripheral arterial disease presented for pneumonia and has been in the hospital since earlier this month. PLAN: We will continue on current medications for the time being. She is currently receiving some IV diuretics. She continues on antibiotics. I will discontinue her Xarelto and place her on some Lovenox in case coronary arteriograms need to be performed I will decrease her amiodarone to daily. She continues on metoprolol. I will try to escalate that medication. We will recheck an EKG as well as an echo. I will review her office records. cc: Lit Alexandre MD
[2018-08-08] MEDS: LOVENOX SUBQ SCH (20:36)
[2018-08-09] MEDS: DUONEB (A & A) INH SCH ×4 (03:20→21:30)
[2018-08-09 03:49] LABS: ALLEN TEST YES; BE 10.6 mmoll (-3.0-3.0); BLOOD TYPE ARTERIAL; HCO3-(ACT) 33.2 mmoll (20.0-26.0); METHB 0.7 % (0.0-1.5); O2(CT) 13.1 mL/dL (15.0-23.0); O2HB 97.1 % (95.0-99.0); PCO2(98.6) 46 mmHg (35-45); PO2(98.6) 127 mmHg (60-100); SAMPLE BLOOD; THB 9.4 g/dL (11.5-17.4); pH(98.6) 7.49 (7.35-7.45)
[2018-08-09 03:50] LABS: MODALITY CANNULA
[2018-08-09] MEDS: MAXIPIME 1 GM in NS 50 ML IV SCH ×4 (05:42→22:19)
[2018-08-09] MEDS: SYNTHROID PO SCH ×2 (05:42→06:02)
--- NOTE | 2018-08-09 07:35 | Diag Imaging Result Doc PS360 ---
EXAM: CHEST-1 VIEW - 08/09/2018 HISTORY: SOB TECHNIQUE: Portable chest COMPARISON: 08/08/2018 FINDINGS: Heart size appears within normal limits. There is transvenous cardiac pacemaker again seen. Bilateral infiltrates have decreased mildly. There is no substantial pleural effusion or pneumothorax identified. IMPRESSION: Mild decrease in bilateral infiltrates. Electronically signed by Vinny Randhawa 08/09/2018 7:33 AM
[2018-08-09] MEDS ORDERED: LASIX IV SCH (09:00)
[2018-08-09] MEDS: MYCOSTATIN SUSP PO SCH ×4 (09:42→21:00)
[2018-08-09] MEDS: SANTYL OINT TOP SCH (09:42)
[2018-08-09] MEDS: OCUVITE LUTEIN & ZEAXANTHIN PO SCH (09:43)
[2018-08-09] MEDS: LOVENOX SUBQ SCH ×2 (09:44→21:00)
[2018-08-09] MEDS: ZYVOX PO SCH ×2 (09:44→20:59)
[2018-08-09] MEDS: FERGON PO SCH (09:44)
[2018-08-09] MEDS: LOPRESSOR PO SCH ×2 (09:44→20:59)
[2018-08-09] MEDS: FOLIC ACID PO SCH (09:44)
--- NOTE | 2018-08-09 09:44 | PROGRESS NOTE ---
DATE: 08/09/2018 INTERVAL HISTORY: Yesterday, she was put on nasal cannula from high-flow nasal cannula. She has been tolerating it well so far. She had episode of tachycardia with pulse of 124 overnight. Her blood pressure was also 90s in the morning time at bedside monitor, heart rate is in 70s. SUBJECTIVE: She is feeling better. She is denying any chest pain. Her shortness of breath seems to be better as well. I discussed about Cardiology evaluation that was done yesterday. I answered all of her questions. OBJECTIVE: Vital Signs: Currently, temperature 98.2 degrees, pulse 69, respiratory rate 16, blood pressure 130/43, saturating 100% on 2 L nasal cannula. General: Does not appear in any acute distress except mild shortness of breath. HEENT: Oral cavity is dry. Lungs: Air entry adequate on right hemithorax, slightly decreased with inspiratory crackles on the left infrascapular region. Cardiovascular: S1, S2 normal. No murmur, rub, or gallop. Abdomen: Soft, nontender, active bowel sounds. Extremities: No lower extremity edema. Genitourinary: She has a Partida catheter in place. LABORATORY DATA: Suggestive of PO2 of 127 on 4 L nasal cannula. She does not have any more BMP. Her troponin was 0.018. No new microbiological data. IMAGING: Suggests improvement in bilateral infiltrate on chest x-ray. ASSESSMENT AND PLAN: 1. Bilateral pneumonia and acute hypoxic respiratory failure. Continue oxygenation through nasal cannula, DuoNebs, intravenous cefepime and linezolid as per Infectious Disease. Today is day 10 of antibiotics and I will appreciate Infectious Disease recommendation about stopping the antibiotics since she has clinically improved, and I am also changing her Lasix to p.o. Continue incentive spirometry. 2. Hypothyroidism. Continue Synthroid and adjust the dose according to her future TSH level. 3. Chest pain with T-wave inversions on EKG with negative troponins. Continue metoprolol, the dose of which is increased now, and continue enoxaparin. 4. Atrial fibrillation with rapid ventricular response, status post pacemaker. Continue metoprolol and enoxaparin. Her Xarelto has been held considering she may need Xarelto in future. 5. Chronic iron and folic acid deficiency anemia. Continue iron and folic acid supplement. 6. Others. Her sepsis, myxedema on presentation have resolved. 7. Disposition. Continue to monitor patient in [facility]. The eventual plan is to discharge her to LTAC sometime next week and from there, transition her to rehab. Plan of care discussed with her. All of her questions have been answered. cc: Dharmesh Jane MD MTDD
[2018-08-09] MEDS: MIRALAX PO SCH ×2 (09:45→21:00)
[2018-08-09] MEDS: CORDARONE PO SCH (09:46)
[2018-08-09] MEDS: NORVASC PO SCH (14:27)
[2018-08-09] MEDS: ASPIRIN PO SCH (14:28)
--- NOTE | 2018-08-09 14:41 | CARDIOLOGY PROGRESS NOTE ---
DATE: 08/09/2018 SUBJECTIVE: Ms. Becker had no episodes of chest pain overnight. She is tolerating oral intake. PHYSICAL EXAMINATION: Vital Signs: She is afebrile. Her heart rate is 74, blood pressure 132/43. General: She is in no acute distress. Cardiovascular: She sounds to be in a regular rate and rhythm. I do not hear any obvious murmurs. She has no S3. No lower extremity edema. Chest: Exam is clear to auscultation bilaterally. She has no increased work of breathing. Abdomen: Soft, nontender. PERTINENT DATA: She has negative cardiac enzymes overnight. Her electrocardiogram today is still pending. Echo is still pending. ASSESSMENT: Ms. Becker is an 88-year-old female who had a bout of chest pain yesterday. She has been long-term in the hospital for treatment of a pneumonia. PLAN: I will recheck her echo today. I have escalated the dose of metoprolol yesterday and added in a small dose of amlodipine. I will add in some aspirin therapy. We will followup on the echo and the EKG. I would be extremely hesitant to do a catheterization on this patient secondary to her extreme debility. The patient is max assist to help sit up in the bed. She is wheelchair- bound. I would not proceed with a cardiac catheterization in this patient at this point unless we see some sort of ST-elevation or significant troponin elevation. Currently, we will continue to titrate medications. She has not had another bout of chest pain. cc: Lit Alexandre MD
[2018-08-09] MEDS: LASIX PO SCH (17:55)
[2018-08-10] MEDS: DUONEB (A & A) INH SCH ×4 (03:20→21:11)
[2018-08-10 03:28] LABS: ALLEN TEST YES; BE 13.4 mmoll (-3.0-3.0); BLOOD TYPE ARTERIAL; HCO3-(ACT) 35.4 mmoll (20.0-26.0); O2(CT) 11.6 mL/dL (15.0-23.0); PCO2(98.6) 40 mmHg (35-45); PO2(98.6) 121 mmHg (60-100); SAMPLE BLOOD; SAO2 100.3 % (95.0-100.0); THB 8.3 g/dL (11.5-17.4)
[2018-08-10 03:32] LABS: MODALITY CANNULA; pH(98.6) 7.57 (7.35-7.45)
[2018-08-10 05:57] LABS: BASO# 0.02 X1000 (0.0-0.2); BASO% 0.3 % (0.0-0.8); EOS# 0.12 X1000 (0.0-0.7); EOS% 1.9 % (0.0-10.0); HEMATOCRIT 29.7 % (37.0-47.0); HEMOGLOBIN 9.5 g/dL (12.0-16.0); IMM GRAN# 0.04 X1000 (0.0-0.04); IMM GRAN% 0.6 % (0.0-0.5); LYMPH# 0.89 X1000 (1.2-3.4); LYMPH% 13.7 % (20.5-51.1); MCH 33.7 PG (27-31); MCV 105.3 FL (81-99); MONO# 0.39 X1000 (0.11-0.59); NEUT# 5.02 X1000 (1.4-6.5); NEUT% 77.5 % (42.2-75.2); PLT 195 X1000 (130-400); RBC 2.82 XMIL (4.2-5.4); RDW 14.1 % (11.5-14.5); WBC 6.48 X1000 (4.8-10.8)
[2018-08-10] MEDS: SYNTHROID PO SCH (06:04)
[2018-08-10] MEDS: MAXIPIME 1 GM in NS 50 ML IV SCH ×3 (06:04→22:51)
[2018-08-10] MEDS: LASIX PO SCH ×2 (06:05→21:10)
[2018-08-10 06:22] LABS: CHOLESTEROL 137 mg/dL (0-200); HDL 46 mg/dL (45-65); LDL 68 mg/dL; TRIGLYCERIDES 113 mg/dL (35-135); VLDL 23 mg/dL
[2018-08-10 06:38] LABS: AGAP 11; BUN 26 mg/dL (8-22); CALCIUM 8.2 mg/dL (8.8-10.2); CHLORIDE 91 mmol/L (98-107); COSMO 274; CREATININE 0.8 mg/dL (0.5-0.9); ESTIMATED GFR > 60; GLUCOSE 114 mg/dL (70-104); MAGNESIUM 2.3 mg/dL (1.5-2.7); POTASSIUM 3.8 mmol/L (3.5-5.1); SODIUM 134 mmol/L (136-145); TCO2 32 mmol/L (25-35)
--- NOTE | 2018-08-10 07:10 | EKG Report ---
Test Performed on : 08/10/2018 06:55:28 AM Test Reason : cp Blood Pressure : / mmHG Vent. Rate : 073 BPM Atrial Rate : 073 BPM P-R Int : 170 ms QRS Dur : 094 ms QT Int : 456 ms P-R-T Axes : 046 -23 046 degrees QTc Int : 502 ms Sinus rhythm. with premature atrial complexes. in a pattern of bigeminy. Moderate voltage criteria for LVH, may be normal variant Nonspecific T wave abnormality Prolonged QT Abnormal ECG When compared with ECG of 09-AUG-2018 17:15, (Unconfirmed) premature atrial complexes. are now present Nonspecific T wave abnormality has replaced inverted T waves in Inferior leads Nonspecific T wave abnormality, improved in Lateral leads Confirmed by Adolfo SERVIN, Anton De León ([id number]) on 08/11/2018 7:28:23 PM
--- NOTE | 2018-08-10 07:21 | EKG Report ---
Test Performed on : 08/09/2018 5:15:49 PM Test Reason : cp Blood Pressure : / mmHG Vent. Rate : 075 BPM Atrial Rate : 075 BPM P-R Int : 164 ms QRS Dur : 096 ms QT Int : 464 ms P-R-T Axes : 053 -28 026 degrees QTc Int : 518 ms Normal sinus rhythm. Voltage criteria for left ventricular hypertrophy Septal infarct (cited on or before 08-AUG-2018) T wave abnormality, consider anterior ischemia Prolonged QT Abnormal ECG When compared with ECG of 08-AUG-2018 09:26, (Unconfirmed) QRS duration has decreased Serial changes of Septal infarct present Confirmed by Adolfo SERVIN, Anton De León ([id number]) on 08/11/2018 7:28:06 PM
--- NOTE | 2018-08-10 07:25 | EKG Report ---
Test Performed on : 08/08/2018 09:26:33 AM Test Reason : Follow up EKG for TWI Blood Pressure : / mmHG Vent. Rate : 074 BPM Atrial Rate : 074 BPM P-R Int : 182 ms QRS Dur : 136 ms QT Int : 438 ms P-R-T Axes : 058 035 -19 degrees QTc Int : 486 ms Normal sinus rhythm. Nonspecific intraventricular block Cannot rule out Anterior infarct , age undetermined T wave abnormality, consider inferior ischemia Abnormal ECG When compared with ECG of 07-AUG-2018 11:26, (Unconfirmed) Significant changes have occurred Confirmed by Adolfo SERVIN, Anton De León ([id number]) on 08/11/2018 7:27:27 PM
[2018-08-10] MEDS: ASPIRIN PO SCH (08:51)
[2018-08-10] MEDS: FERGON PO SCH (08:51)
[2018-08-10] MEDS: NORVASC PO SCH (08:51)
[2018-08-10] MEDS: LOVENOX SUBQ SCH (08:51)
[2018-08-10] MEDS: FOLIC ACID PO SCH (08:52)
[2018-08-10] MEDS: SANTYL OINT TOP SCH (08:52)
[2018-08-10] MEDS: CORDARONE PO SCH (08:52)
[2018-08-10] MEDS: LOPRESSOR PO SCH ×2 (08:52→21:10)
[2018-08-10] MEDS: ZYVOX PO SCH ×2 (08:52→21:10)
[2018-08-10] MEDS: OCUVITE LUTEIN & ZEAXANTHIN PO SCH (08:52)
[2018-08-10] MEDS: MYCOSTATIN SUSP PO SCH ×4 (08:53→21:10)
[2018-08-10] MEDS: MIRALAX PO SCH (08:53)
[2018-08-10] MEDS ORDERED: MIRALAX PO PRN (09:58)
--- NOTE | 2018-08-10 10:28 | PROGRESS NOTE ---
DATE: 08/10/2018 INTERVAL HISTORY: No acute events overnight. SUBJECTIVE: The patient is feeling fine. Denies any complaints. Denies new chest pain or shortness of breath. We discussed about her exam findings. We discussed about possible discharge to LTAC whenever the bed becomes available. I answered all of her questions. We also discussed about possibly discontinuing antibiotics. VITALS: She has been afebrile. Temperature of 98 degrees, pulse 73, respiratory rate 14, blood pressure 110/40, and saturating 98% on 2 L nasal cannula. PHYSICAL EXAMINATION: General: Does not appear in any acute distress. She does have coughing episodes when she eats for which repeat speech evaluation has been ordered. HEENT: Oral cavity is moist. Lungs: Air entry adequate on right hemithorax. Slightly decreased with inspiratory crackles on left infrascapular region. Heart: S1, S2 normal. No murmur or gallop. Abdomen: Soft, nontender. Active bowel sounds. Extremities: No lower extremity edema. : Her Partida catheter has been ordered to be removed. LABORATORY: Labs suggestive of stable hemoglobin and stable platelet count. She does have adequate oxygenation on nasal cannula. Her kidney function appears to have improved. MICROBIOLOGY: No data. ASSESSMENT AND PLAN: 1. Bilateral pneumonia and acute hypoxic respiratory failure. Continue oxygenation through nasal cannula, DuoNeb's, and p.o. Lasix. My plan is to stop antibiotics today, and I have informed Infectious Disease doctor about it. Continue incentive spirometry. 2. Hypothyroidism. Continue Synthroid, and adjust the dose according to her TSH. 3. Chest pain with intermittent EKG changes with negative troponin's. Currently, conservative medical management plan by Cardiology. Continue metoprolol and amlodipine. Continue aspirin. Continue enoxaparin for now. 4. 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 4. Atrial fibrillation with rapid ventricular response, status post pacemaker. Continue metoprolol and decreased dose of amiodarone. I will change enoxaparin to Xarelto at the time of discharge if no other cardiovascular intervention planned. 5. Others: Continue iron and folic acid supplement for chronic anemia. Her sepsis and myxedema on presentation have resolved. 6. Disposition. My plan is to transfer patient to routine medical floor in the next 24 hours. We are awaiting bed at LTAC. Plan of care discussed with the patient, and all of her questions have been answered. cc: Dharmesh Jane MD MTDD
--- NOTE | 2018-08-10 13:42 | ECHO REPORT ---
ORDER DATE: 08/09/2018 STUDY: Limited echo. INDICATION: Chest pain. FINDINGS: 1. The right ventricle appears to have normal RV size and systolic function. 2. The left ventricle appears to be normal in size with an end-diastolic dimension of 3.5 cm. 3. There is mild to moderate left ventricular hypertrophy with a posterior interventricular septal wall thickness of 1.1 and 1.4 cm respectively. Hyperdynamic LV systolic function with an estimated EF greater than 70%. 4. There is no mitral valve prolapse. 5. The aortic valve appears to open well. 6. No pericardial effusion is identified. 7. No Doppler evaluation was performed on this study. 8. No significant wall motion abnormality is identified. cc: Lit Alexandre MD
[2018-08-10] MEDS: XARELTO PO SCH (16:01)
[2018-08-11] MEDS: DUONEB (A & A) INH SCH ×4 (04:00→21:15)
[2018-08-11] MEDS: MAXIPIME 1 GM in NS 50 ML IV SCH (06:53)
[2018-08-11] MEDS: SYNTHROID PO SCH (06:53)
--- NOTE | 2018-08-11 08:40 | Diag Imaging Result Doc PS360 ---
GI SERIES WITH BA SWALLOW - 08/11/2018 INDICATION: abnormal mod barium swallow TECHNIQUE: Total fluoroscopy time was one minute 23 seconds. 34 images were obtained. COMPARISON: 07/29/2018 FINDINGS: There is a large hiatal hernia with about one third of the stomach up in the chest. The gastroesophageal junction appears to be above the diaphragm. There is no evidence of mucosal mass. There is prompt passage of contrast into the distal stomach and duodenum. The duodenum and proximal small bowel all appear normal. There is grossly normal peristalsis. IMPRESSION: Large hiatal hernia with about one third of the stomach up in the chest. No complication or obstruction. Electronically signed by Alberto Kaufman 08/11/2018 8:38 AM
[2018-08-11] MEDS ORDERED: DOXYCYCLINE PO SCH (09:00)
[2018-08-11] MEDS: MYCOSTATIN SUSP PO SCH ×4 (09:26→20:33)
[2018-08-11] MEDS: FOLIC ACID PO SCH (09:26)
[2018-08-11] MEDS: LOPRESSOR PO SCH ×2 (09:26→20:32)
[2018-08-11] MEDS: ASPIRIN PO SCH (09:27)
[2018-08-11] MEDS: NORVASC PO SCH (09:27)
[2018-08-11] MEDS: FERGON PO SCH (09:27)
[2018-08-11] MEDS: CORDARONE PO SCH (09:27)
[2018-08-11] MEDS: LASIX PO SCH ×2 (09:27→20:32)
[2018-08-11] MEDS: CEFTIN PO SCH ×2 (09:28→20:32)
[2018-08-11] MEDS: SANTYL OINT TOP SCH (09:29)
[2018-08-11] MEDS: OCUVITE LUTEIN & ZEAXANTHIN PO SCH (09:30)
[2018-08-11] MEDS: DOXYCYCLINE PO SCH ×2 (09:31→20:32)
[2018-08-11] MEDS: XARELTO PO SCH (17:39)
[2018-08-12] MEDS: DUONEB (A & A) INH SCH ×4 (03:35→21:20)
[2018-08-12 04:50] LABS: ALLEN TEST YES; BE 13.3 mmoll (-3.0-3.0); BLOOD TYPE ARTERIAL; HCO3-(ACT) 35.3 mmoll (20.0-26.0); METHB 0.9 % (0.0-1.5); O2(CT) 11.5 mL/dL (15.0-23.0); O2HB 97.1 % (95.0-99.0); PCO2(98.6) 41 mmHg (35-45); PO2(98.6) 139 mmHg (60-100); SAMPLE BLOOD; SAO2 99.2 % (95.0-100.0); THB 8.2 g/dL (11.5-17.4)
[2018-08-12 04:59] LABS: pH(98.6) 7.56 (7.35-7.45)
[2018-08-12 05:00] LABS: MODALITY CANNULA
[2018-08-12] MEDS: SYNTHROID PO SCH (06:28)
[2018-08-12 06:46] LABS: AGAP 8; BUN 20 mg/dL (8-22); CALCIUM 8.9 mg/dL (8.8-10.2); CHLORIDE 91 mmol/L (98-107); COSMO 276; CREATININE 0.7 mg/dL (0.5-0.9); ESTIMATED GFR > 60; GLUCOSE 117 mg/dL (70-104); MAGNESIUM 2.4 mg/dL (1.5-2.7); POTASSIUM 3.8 mmol/L (3.5-5.1); SODIUM 136 mmol/L (136-145); TCO2 37 mmol/L (25-35)
[2018-08-12 07:04] LABS: BASO# 0.01 X1000 (0.0-0.2); BASO% 0.2 % (0.0-0.8); EOS# 0.12 X1000 (0.0-0.7); EOS% 2.6 % (0.0-10.0); HEMATOCRIT 27.4 % (37.0-47.0); HEMOGLOBIN 8.7 g/dL (12.0-16.0); IMM GRAN# 0.02 X1000 (0.0-0.04); IMM GRAN% 0.4 % (0.0-0.5); LYMPH# 0.64 X1000 (1.2-3.4); LYMPH% 13.8 % (20.5-51.1); MCHC 31.8 g/dL (33-37); MONO# 0.31 X1000 (0.11-0.59); MONO% 6.7 % (1.7-9.3); NEUT# 3.54 X1000 (1.4-6.5); NEUT% 76.3 % (42.2-75.2); PLT 198 X1000 (130-400); RBC 2.56 XMIL (4.2-5.4); RDW 14.3 % (11.5-14.5); WBC 4.64 X1000 (4.8-10.8)
[2018-08-12] MEDS: CEFTIN PO SCH ×2 (08:39→21:25)
[2018-08-12] MEDS: FERGON PO SCH (08:39)
[2018-08-12] MEDS: MYCOSTATIN SUSP PO SCH ×4 (08:39→21:25)
[2018-08-12] MEDS: DOXYCYCLINE PO SCH ×2 (08:39→21:25)
[2018-08-12] MEDS: FOLIC ACID PO SCH (08:39)
[2018-08-12] MEDS: ASPIRIN PO SCH (08:39)
[2018-08-12] MEDS: OCUVITE LUTEIN & ZEAXANTHIN PO SCH (08:40)
[2018-08-12] MEDS: LOPRESSOR PO SCH ×2 (08:40→21:25)
[2018-08-12] MEDS: CORDARONE PO SCH (08:40)
[2018-08-12] MEDS: NORVASC PO SCH (08:40)
[2018-08-12] MEDS: LASIX PO SCH (08:41)
--- NOTE | 2018-08-12 14:32 | PROGRESS NOTE ---
DATE: 08/12/2018 INTERVAL HISTORY: No acute events. The patient was transferred from [facility] to routine medical floor. She does not have any acute events. She underwent a barium swallow study yesterday, which had suggested that she had a large hiatal hernia, which is probably the reason why she had symptoms of aspiration on presentation and continues to have that while eating. I discussed the findings with her. I am holding her Lasix for metabolic alkalosis. SUBJECTIVE: The patient denies new complaints. We discussed about pending bed availability at [facility]. OBJECTIVE: Vital Signs: Temperature 97.8 degrees, pulse 68, respiratory rate 16, blood pressure 120/40, saturating 100% on 2 L nasal cannula. General: She does not appear in any acute distress. HEENT: Oral cavity is moist. Lungs: Air entry is adequate on right hemithorax. Slightly decreased air entry with inspiratory crackles on the left infrascapular region. Heart: S1, S2 normal. No murmur or gallop. Abdomen: Soft, nontender. Active bowel sounds. Extremities: No lower extremity edema. LABORATORY DATA: She does have stable hemoglobin, stable platelet count, profound metabolic alkalosis. She does have hypochloremia and elevated carbon dioxide. MICROBIOLOGY: No new data. ASSESSMENT AND PLAN: 1. Bilateral pneumonia and acute hypoxic respiratory failure, likely a component of aspiration pneumonia as well. Continue oxygenation through nasal cannula as tolerated, DuoNebs, and oral antibiotics as per Infectious Disease recommendation. My plan is to stop antibiotics in the next 3 to 4 days as per discussion with Infectious Disease doctor, to complete a total of 5 to 7 days of oral antibiotics course. 2. Acute diastolic heart failure exacerbation. She has required intermittent intravenous Lasix. I am holding her oral Lasix for 24 hours, considering her profound metabolic alkalosis, and I would resume it as per her respiratory status. Continue incentive spirometry. 3. Hypothyroidism. Continue current dose of Synthroid. She should get a repeat TSH in about a week's time, and get the Synthroid dose adjusted considering her atrial fibrillation as well. 4. Chest pain with intermittent electrocardiogram changes with negative troponins. Conservative medical management recommended by Cardiology. Continue metoprolol, amlodipine, aspirin. 5. Dysphagia, with barium swallow study suggestive of a large hiatal hernia. This is likely a contributing factor to her aspiration pneumonia, as well as dysphagia. Continue aspiration precaution. Await further Gastroenterology recommendations. 6. Atrial fibrillation with rapid ventricular rate, status post pacemaker. Continue metoprolol, amiodarone, and Xarelto, which are her home medications. 7. Others. Continue iron, folic acid supplement for chronic anemia. Her sepsis and myxedema on presentation have resolved. 8. Communuted pubic fracture on presentation: Orthopedic has been consulted. 8. Disposition. The patient is awaiting bed at long-term acute care facility. However, it has been 7 days when the process of long-term acute care was initiated, and she appears to be doing well in the last 7 days. I will discuss with the manager social responsibility team to consider rehab if long-term acute care bed does not become available. Plan of care discussed with the patient. ADDENDUM: Family decided to take her to [facility] rehab. Private room would be available on 08/13. Discharge summary and rehab order set are done. cc: Dharmesh Jane MD MTDD
--- NOTE | 2018-08-12 15:49 | INFECTIOUS DISEASE PROGRESS NO ---
DATE: 08/10/2018 HISTORY OF PRESENT ILLNESS: The patient has a bilateral pneumonia, and she also has oral candidiasis. She has had a decrease in her IgG level, but the decrease is so minimal that it is not of clinical importance. The patient is on Nystatin for her oral candidiasis. MEDICATIONS: This is the 10th day of treatment with the current antibiotics, namely, cefepime and Zyvox. PHYSICAL EXAMINATION: Vital Signs: Temperature is 97.5, pulse 65, respirations 14, blood pressure 129/49. General: This is an ill-appearing elderly female. She is in no acute distress. Head, eyes, ears, nose and throat: She can hear my spoken words and see near objects. She does not have any white coating on her tongue. Neck: She does not get any neck pain if she moves her head or her neck. Lungs: Clear to auscultation. Cardiovascular: Heart rate is regular. Thorax: The patient has an increased AP diameter of the chest. She has a pacemaker present on the left side. The site is not swollen or red. Abdomen: Soft and nontender. Legs: No edema or erythema. LAB AND X-RAY: Chest x-ray shows a decrease in the patient's bilateral infiltrates. The patient's creatinine is 0.8. GFR is greater than 60. Blood gases show a pH of 7.57, pO2 of 121, and pCO2 of 40. CBC shows a white count of 6480, hemoglobin of 9.5, and platelet count of 195,000. ASSESSMENT/PLAN: The patient has pneumonia and oral candidiasis. Both are getting better with the current treatment, which I would like to continue for approximately another week. As mentioned earlier, the patient's IgG level is minimally decreased, and it does not merit getting IVIG. COMORBIDITIES: The patient is elderly. She has a history of oral cancer and stroke. She has COPD. cc: Dale Damon MD
--- NOTE | 2018-08-12 16:31 | CARDIOLOGY PROGRESS NOTE ---
DATE: 08/12/2018 SUBJECTIVE: Ms. Becker has had no episodes of chest pain in the last 48 hours. She has no complaints. Presently she is tolerating oral intake. OBJECTIVE: She is afebrile. Heart rate 65, blood pressure 129/49. Generally she is in no acute distress. Cardiovascularly she sounds to be in a regular rate and rhythm. She has no obvious murmurs. No S3. She has no lower extremity edema. Her chest sounds relatively clear. She has a poor inspiratory effort. No increased work of breathing. Abdomen is soft, nontender. PERTINENT DATA: White count 6.5, hematocrit 29,platelet count 195,000. Her sodium is 134 potassium 3.8, BUN 26 creatinine 0.8. ASSESSMENT: Ms. Becker is an 88-year-old female who is in the hospital being treated for pneumonia. She has had periodic bouts of chest pain. PLAN: Her echocardiogram was reviewed. There are no wall motion abnormalities identified. Her cardiac enzymes have been negative. The patient is extremely debilitated, requiring maximal assistance just to sit up in bed. She is wheelchair-bound. She presently is not a cardiac catheterization candidate. For now, I will treat her medically with aspirin, as well as metoprolol. She was on Xarelto previously. I will discontinue the Lovenox and re-initiate the Xarelto this evening. We have increased her antianginals, including the amlodipine as well as metoprolol. Please contact us if we can be of further assistance. cc: Lit Alexandre MD
[2018-08-12] MEDS: XARELTO PO SCH (16:53)
--- NOTE | 2018-08-12 22:05 | ORTHOPAEDICS CONSULTATION ---
DATE: 08/12/2018 CHIEF COMPLAINT: Hip pain status post fall. HISTORY OF PRESENT ILLNESS: Ms. Becker is an 88-year-old female, who apparently fell a couple weeks ago. At that time it was discovered that she had a comminuted right pubic symphysis fracture. She was admitted for further medical management. We are asked for further evaluation and treatment regarding her pubic symphysis fracture. She denies any pain at this time. PAST MEDICAL HISTORY, PAST SURGICAL HISTORY, ALLERGIES, MEDICATIONS: See the admission history and physical. REVIEW OF SYSTEMS: Positive for mild right hip pain. All others negative. PHYSICAL EXAMINATION: General: This is a well developed, well-nourished female. She is alert, oriented, cooperative examination. She is in no acute distress. Vital Signs: Stable. She is afebrile. HEENT: Head is normocephalic, atraumatic. Neck: Supple. Respiratory: Breathing is nonlabored. Abdomen: Nondistended. Neurologic: Sensation in her bilateral extremities is intact. Strength of her bilateral lower extremities is 5/5 equal and symmetric. Musculoskeletal: She has good range of motion of her right hip without pain. She denies much tenderness with palpation over her pelvis. IMAGING: A CT of her abdomen and pelvis revealed a comminuted right pubic symphysis fracture. ASSESSMENT: Right comminuted pubic symphysis fracture. PLAN: The fracture appears stable. She is to be weightbearing as tolerated. She could use the aid of a front wheel walker while she is ambulating. She can follow up in the office when she is medically stable. Dictated by CESIA Rosales for Cj Mirza MD cc: CESIA Rosales MD [facility], [place]
[2018-08-13] MEDS: DUONEB (A & A) INH SCH ×2 (03:40→07:41)
[2018-08-13] MEDS: SYNTHROID PO SCH (06:07)
[2018-08-13] MEDS ORDERED: ALBUTEROL NEB ONE (08:49)
[2018-08-13] MEDS: SANTYL OINT TOP SCH (09:10)
[2018-08-13] MEDS: NORVASC PO SCH (09:15)
[2018-08-13] MEDS: FOLIC ACID PO SCH (09:15)
[2018-08-13] MEDS: ASPIRIN PO SCH (09:15)
[2018-08-13] MEDS: FERGON PO SCH (09:16)
[2018-08-13] MEDS: CEFTIN PO SCH (09:16)
[2018-08-13] MEDS: LOPRESSOR PO SCH (09:16)
[2018-08-13] MEDS: OCUVITE LUTEIN & ZEAXANTHIN PO SCH (09:16)
[2018-08-13] MEDS: MYCOSTATIN SUSP PO SCH (09:16)
[2018-08-13] MEDS: DOXYCYCLINE PO SCH (09:16)
[2018-08-13] MEDS: CORDARONE PO SCH (09:16)
[2018-08-13 11:45] VITALS: BP 114/34
--- NOTE | 2018-08-13 11:52 | DISCHARGE SUMMARY ---
ADMISSION DATE: 07/26/2018 DISCHARGE DATE: 08/13/2018 PRIMARY CARE PHYSICIAN: Dr. Rhys Reyes. ADMITTING DIAGNOSES: 1. Bilateral lower lobe pneumonia and suspected sepsis. 2. 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 3. Mechanical fall because of physical deconditioning and myxedema coma. 4. Hyponatremia. 5. Hypochloremia. 6. Hyperkalemia in the setting of chronic kidney disease stage 3. 7. History of atrial fibrillation with rapid ventricular response, status post pacemaker, on Xarelto. 8. History of peripheral artery disease. 9. Essential hypertension. DISCHARGE DIAGNOSES: 1. Bilateral pneumonia, due to aspiration. 2. Diastolic heart failure. 3. Hypothyroidism. 4. Hiatal hernia. 5. Atrial fibrillation, status post pacemaker. 6. Anemia of chronic disease. 7. Symphysis pubis fracture from fall at home. HOSPITAL COURSE: Ms. Becker is an 88-year-old lady who presented to the ER after a mechanical fall at home. She is a bedbound patient who uses a motorized wheelchair to transfer. She went to have a bowel movement and was using her motorized wheelchair and she apparently fell while going to the bathroom and her woke up and found her on the floor and did not know how long she had been on the floor. EMS was called and she was found to have hematoma, bilateral lower leg edema, bilateral upper extremity edema and facial swelling. When she was brought to the ER, labs noted that she had a TSH which was very elevated. She was started on IV levothyroxine and hydrocortisone. She was also noted to have bilateral lower lobe pneumonia, possible sepsis, hyponatremia, hyperkalemia, hypochloremia, and lower extremity cellulitis. states that she had a pleural effusion a few weeks back and was started on some medications for that. While in the hospital, she was noted to have some dysphagia. They did a barium swallow. They thought this might have been what caused the aspiration pneumonia. She was started initially on ceftriaxone and azithromycin for positive blood cultures of strep pneumonia and Legionella. She was then changed over to Zyvox and cefepime for worsening respiratory failure. She was started on Mycostatin oral swish and swallow for thrush. She was noted to have anemia and she was started on folic acid. Dr. Mirza was consulted for a right symphysis pubis fracture and she is to see him outpatient for that. Dr. Alexandre was consulted for her atrial fibrillation and status post pacemaker. The patient is noted to have a history of chronic kidney disease stage 3. Throughout her hospital coarse, electrolytes have been replaced. She had to be admitted to the ICU and wear BiPAP for some time. She then was transferred to the CIC unit, placed on high-flow nasal cannula. She has now been weaned off the high-flow nasal cannula and she is doing much better. Her IV Synthroid has now changed to p.o. Synthroid and is therapeutic . She has now been started on p.o. antibiotics and has been awaiting a bed at rehab facility for several days. She is now being discharged to [facility] for rehab. DISCHARGE INSTRUCTIONS: The patient is to follow up with Dr. Dale Damon after discharge. She is to follow up with Dr. Jerez after discharge. She is to follow up with Dr. Alverto Robles in 2 to 4 weeks after discharge. She is to follow up with Dr. Lit Alexandre after discharge and Dr. Rhys Reyes after discharge. DISCHARGE MEDICATIONS: Prescriptions are given for aspirin 81 mg p.o. daily. Ceftin 500 mg p.o. q.12 hours for 3 days for pneumonia. Amiodarone 200 mg p.o. daily. Doxycycline 500 mg p.o. b.i.d. for 3 days for pneumonia. Albuterol and Atrovent DuoNeb routine q.6 hours. Folic acid 1 mg p.o. daily. Lasix 40 mg p.o. daily. Metoprolol 25 mg p.o. b.i.d. MiraLAX 17 g p.o. daily p.r.n. Norvasc 2.5 mg p.o. daily. Synthroid 125 mcg p.o. daily. Continue home medications of ferrous gluconate 240 mg p.o. daily, PreserVision tablets 1 each p.o. daily, Xarelto 15 mg p.o. daily. ACTIVITY: Per [facility] DIET: Per [facility] Dictated by SUDHEER Morales for Andrea Mckinley MD cc: MD Rhys Dhillon MD Leroy F. Harris, MD Mamoun I. Najjar, MD Peter Johnson, MD DOE Martini
--- NOTE | 2018-08-13 15:32 | PROGRESS NOTE ---
DATE: 08/11/2018 INTERVAL HISTORY: Gastroenterology was consulted for her dysphagia yesterday and the patient underwent upper GI barium study, which suggested large hiatal hernia which is probably contributing to her dysphagia and aspiration. The patient denies any new symptoms. She says physical therapy was able to come by and help her exercise a little bit yesterday, however, she is feeling significantly weak. We discussed about possibly finding an L-TAC bed in the middle of the week. She denies any chest pain. VITAL SIGNS: Temperature 97.4, pulse 69, respiratory rate 21, blood pressure 120/43, saturating 99% on 2 L nasal cannula. PHYSICAL EXAMINATION: General: Does not appear in any acute distress. No pallor, cyanosis, clubbing, or icterus. Oral cavity is moist. Respiratory: Adequate air entry of right hemithorax. Slightly decreased air entry with inspiratory crackles in the left infrascapular region with some gurgling sound likely because of hiatal hernia. Cardiovascular: S1, S2 normal. No murmur, rub, or gallop. Abdomen: Soft, nontender, active bowel sounds. Extremities: No lower extremity edema. Her Partida catheter has been removed. LABORATORY: No CBC or BMP today. Her TSH is still elevated to 4.9. ASSESSMENT AND PLAN: 1. Bilateral pneumonia and acute hypoxic respiratory failure. Continue oxygenation through nasal cannula, DuoNebs, p.o. Lasix. I will give her a total of 7 more days of antibiotics. The patient has been changed to oral cefuroxime and doxycycline. The last day of antibiotics should be 08/16/2018. 2. Hypothyroidism. Continue Synthroid and adjust the dose according to TSH.TSH level in the future. 3. Intermittent dysphagia likely because of large hiatal hernia. I will continue the patient on mechanical soft diet and await further GI recommendation. The patient was advised about aspiration precaution, taking small meals. 4. Chest pain with intermittent electrocardiogram changes, which are now resolved, with negative troponins. Continue metoprolol, amlodipine, aspirin, as per Cardiology recommendation. 5. History of atrial fibrillation with rapid ventricular rate status post pacemaker. Continue metoprolol, amiodarone, and Xarelto. 6. Other: Continue iron and folic acid supplement for chronic anemia. Her sepsis and myxedema on presentation have resolved. DISPOSITION: The patient will be transferred to routine Medical floor and we are waiting L-TAC bed. Plan of care discussed with patient and all of her questions have been answered. cc: Dharmesh Jane MD MTDD
--- NOTE | 2018-08-13 17:02 | INFECTIOUS DISEASE PROGRESS NO ---
DATE: 08/11/2018 PRESENT ILLNESS: The patient has a bilateral pneumonia and oral candidiasis. Her IgG level is only minimally decreased at 609. MEDICATIONS: The patient has been receiving p.o. Zyvox and IV cefepime. She is getting Mycostatin for her oral candidiasis. Because the patient's IgG level was only minimally decreased, I do not think IVIG is necessary. PHYSICAL EXAMINATION: Vital signs: Temperature is 98, pulse 67, respirations 20, blood pressure 144/46. General: This is an ill-appearing elderly female. She is in no acute distress. Head, Eyes, Ears, Nose, and Throat: She can hear my spoken words and see near objects. She does not have any white coating of her tongue. Neck: She does not have any neck pain when she moves her neck or head. Lungs: Clear to auscultation. Cardiovascular: Heart rate is regular. Thorax: The patient has an increased AP diameter of the chest. She also has a pacemaker on the left side the site of which is not erythematous or swollen. Extremities: The patient does not have any edema or erythema in her legs. LAB AND X-RAY: There is no new lab or x-ray back yet today. ASSESSMENT AND PLAN: I discussed the patient's care with Dr. Jane. Our plan is to switch the patient to oral antibiotics, which are Ceftin 500 mg p.o. and doxycycline 50 mg p.o. both to be given every 12 hours for 7 days. COMORBIDITIES: The patient is elderly. She has a history of oral cancer and stroke, and she has COPD. ADDENDUM: I am signing off on the patient's case now. As mentioned above, the plan is to continue Ceftin and doxycycline for another week. I am available p.r.n. to see the patient. cc: Dale Damon MD
--- NOTE | 2018-08-14 00:43 | GASTROENTEROLOGY CONSULTATION ---
DATE: 08/11/2018 REASON FOR CONSULTATION: Abnormal modified barium swallow study. HISTORY OF PRESENT ILLNESS: The patient has been in the hospital since 07/27/2018. She was admitted with sepsis related to lower lobe pneumonia. She has apparently had dysphagia during her hospitalization. A barium swallow study was done on 07/29/2018 that showed cricopharyngeal acolasia, presbyesophagus, and large hiatal hernia with possible mucosal mass. GI was consulted for further evaluation. Due to the pt's recent respiratory problems, we did an upper GI series, which showed a large hiatal hernia without 1/3 of the stomach in the chest and no complication or obstruction. There was no evidence of mucosal mass. The patient's nurse states she does have some coughing when eating but there was no evidence of aspiration on barium swallow. At the time of my evaluation, the patient was drowsy but she did arouse. There was no family at the bedside. Information is obtained from the chart. PAST MEDICAL HISTORY: History of CVA, hypertension, atrial fibrillation, history of mouth cancer, GERD. PAST SURGICAL HISTORY: Pacemaker placement, hip surgery, peripheral arterial disease and angioplasty. ALLERGIES: No known drug allergies. HOME MEDICATIONS: 1. Cordarone 200 mg twice a day. 2. Norvasc 10 mg daily. 3. Fergon 240 mg daily. 4. Lasix 40 mg daily. 5. Lopressor 25 mg daily. 6. Potassium 10 mEq daily. 7. Xarelto 15 mg daily. 8. Aldactone 12.5 mg daily. 9. Vitamins daily. SOCIAL HISTORY: No tobacco or alcohol use. REVIEW OF SYSTEMS: Per history of present illness and chart information. PHYSICAL EXAMINATION: VITAL SIGNS: Temperature 97.4 degrees, pulse 63, respirations 16, blood pressure 113/44. GENERAL: Patient was drowsy but she did respond. She followed commands. HEENT: Normocephalic, atraumatic. Pupils equal, round and reactive to light. Sclerae are nonicteric. ABDOMEN: Soft, nontender. Positive bowel sounds. EXTREMITIES: No lower extremity edema noted. LABORATORY DATA: WBC 6.48, hemoglobin 9.5, hematocrit 29.7, MCV 105.3, platelets 195. Chemistry panel: Sodium 134, potassium 3.8, chloride 91, CO2 of 32, BUN 26, creatinine 0.8, glucose 114. IMAGING STUDIES: Modified barium swallow study on 07/29/2018 showed cricopharyngeal acolasia, presbyesophagus and large hiatal hernia with possible mucosal mass. Upper GI series done this morning showed a large hiatal hernia, about 1/3 of the stomach in the chest. No evidence of mucosal mass. There was prompt passage of contrast into distal stomach and duodenum. There was no obstruction noted. ASSESSMENT AND PLAN: 1. Pneumonia. On respiratory management. 2. Dysphagia with modified barium swallow study that showed possible mucosal mass. Upper GI series done this morning showed large hiatal hernia with no evidence of mass. Would recommend continued proton pump inhibitor. Continue strict antireflux measures. Patient needs to be sitting up in the bed or up in a chair when eating. Eat smaller meals. Do not recommend EGD evaluation. 3. We will continue to follow. I believe there is discussion about the patient going to long-term care facility. Further plans will be made according to her progress. I have discussed this case with Dr. Rojas. Thank you for this consultation. Dictated by SUDHEER Isabel for Shmuel Rojas MD cc: SUDHEER Casper MD [facility]
== END 2018-08-13 13:08 | DRG 871 ==
LOC: SUPCPDRO → ED 06:52 → SUATTDRO 11:12 → ICU 11:12 → 3S 07-28 14:51 → 4N 08-11 11:25
PROVIDERS: ATTEND Internal Medicine
CPT/HCPCS: 51702; 70450; 71010; 71020; 71045; 71046; 71250; 74177; 74230; 74246; 76536; 80048; 80053; 80061; 81001; 82533; 82550; 82553; 82570; 82607; 82728; 82746; 82784; 82805; 82948; 83540; 83550; 83605; 83735; 83880; 83930; 83935; 84132; 84145; 84300; 84436; 84439; 84443; 84480; 84481; 84484; 85025; 85610; 85730; 86376; 87040; 87324; 87449; 87899; 92611; 93005; 93010; 93306; 93308; 93971; 94640; 94660; 94760; 94761; 94762; 94799; 96374; 96375; 96376; 97110; 97162; 97530; 99285; 99291; A9270; C8924; J0456; J0692; J0696; J1650; J1720; J1940; J3480; J7030; Q9956; Q9967; XXXXX